=== PATIENT | female | born 1955 | race Two or more races ===

== ENCOUNTER 2023-09-11 11:48 | Emergency (ER) | payer OTHER, SELFPAY ==
[2023-09-11 11:50] VITALS: BP 193/85; PULSE 57; TEMP 36.7; O2SAT 97; BMI 28.9
--- NOTE | 2023-09-11 12:13 | ECG_ITS ---
[facility] Test Date: 2023-09-11 Pat Name: SHELLI WATERS Department: Room: - Gender: Female Construction Rep: : 1955 Requested By: MATTHEW WILEY Order Number: [id number] Reading MD: NGA STROUD Measurements Intervals [place] Rate: 55 P: 46 UT: 172 QRS: -12 QRSD: 84 T: 32 QT: 432 QTc: 420 Interpretive Statements 1100 Sinus rhythm 2420 RSR (QR) in lead V1/V2, consistent with right ventricular conduction delay 9130 borderline ECG No previous ECG available for comparison Electronically Signed On 09-11-2023 22:45:09 EDT by NGA STROUD
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
[2023-09-11 12:54] LABS: Basophils Absolute Auto 0.1 10^3/uL (0.0-0.1); Basophils Percent Auto 1.1 % (0.2-2.0); Eosinophils Absolute Auto 0.1 10^3/uL (0.0-0.7); Eosinophils Percent Auto 2.9 % (0.9-7.0); Hematocrit 43.4 % (36.0-48.0); Hemoglobin 14.4 g/dL (12.0-16.0); Immature Granulocytes Abs Auto 0.01 10^3/uL (0.00-0.03); Immature Granulocytes Pct Auto 0.2 % (0.0-0.5); Lymphocytes Absolute Auto 1.5 10^3/uL (1.2-3.8); Lymphocytes Percent Auto 31.1 % (20.5-60.0); Mean Corpuscular HGB Conc 33.2 g/dL (29.9-35.2); Mean Corpuscular Hemoglobin 31.8 pg (26.7-34.0); Mean Corpuscular Volume 95.8 fL (81.0-99.0); Mean Platelet Volume 9.8 fL (9.5-13.5); Monocytes Absolute Auto 0.4 10^3/uL (0.3-0.8); Monocytes Percent Auto 8.6 % (1.7-12.0); Neutrophils Absolute Auto 2.7 10^3/uL (1.4-6.5); Neutrophils Percent Auto 56.1 % (43.0-75.0); Platelet Count 246 10^3/uL (150-450); Red Blood Count 4.53 10^6/uL (4.20-5.40); White Blood Count 4.8 10^3/uL (4.0-11.0)
[2023-09-11 13:06] LABS: Alanine Aminotransferase 80 U/L (14-59); Albumin Globulin Ratio 0.9; Albumin Level 3.5 g/dL (3.4-5.0); Alkaline Phosphatase 78 U/L (46-116); Anion Gap 11.5; Aspartate Amino Transferase 46 U/L (15-37); BUN Creatinine Ratio 17.1; Bilirubin Total 1.2 mg/dL (0.2-1.0); Calcium 9.1 mg/dL (8.5-10.1); Carbon Dioxide 28.1 mmol/L (21.0-32.0); Chloride 105 mmol/L (98-107); Estimated GFR (African America >60 (>=60); Estimated GFR (Non-African Ame 52 (>=60); Globulin 3.8 g/dL; Glucose 122 mg/dL (74-106); Potassium 3.6 mmol/L (3.5-5.1); Sodium 141 mmol/L (136-145); Total Protein 7.3 g/dL (6.4-8.2)
[2023-09-11 13:13] LABS: Bilirubin Urine NEGATIVE (NEGATIVE); Blood Urine NEGATIVE (NEGATIVE); Clarity Urine SL CLOUDY (CLEAR); Color Urine YELLOW (YELLOW); Glucose Urine UA NEGATIVE (NEGATIVE); Ketones Urine TRACE mg/dL (NEGATIVE); Leukocyte Esterase Urine SMALL (NEGATIVE); Nitrite Urine NEGATIVE (NEGATIVE); Protein Urine 30 mg/dL (NEG/TRACE); Specific Gravity Urine >=1.030 (1.005-1.025); Urobilinogen Urine 0.2 EU/dL (0.2-1.0)
[2023-09-11 13:14] VITALS: BP 177/88; PULSE 75; O2SAT 98
[2023-09-11 13:17] LABS: Urine Microscopic Indicated YES
[2023-09-11 13:26] LABS: Amphetamine Screen Urine NEGATIVE (NEGATIVE); Barbiturates Screen Urine NEGATIVE (NEGATIVE); Benzodiazepines Screen Urine NEGATIVE (NEGATIVE); Buprenorphine Screen Urine NEGATIVE (NEGATIVE); Cannabinoid Screen Urine NEGATIVE (NEGATIVE); Cocaine Screen Urine NEGATIVE (NEGATIVE); Methadone Screen Urine NEGATIVE (NEGATIVE); Methamphetamines Screen Urine NEGATIVE (NEGATIVE); Opiate Screen Urine NEGATIVE (NEGATIVE); Oxycodone Screen Urine NEGATIVE (NEGATIVE); Phencyclidine Screen Urine NEGATIVE (NEGATIVE); Tricyclic Antidepressant Urine NEGATIVE (NEGATIVE)
--- NOTE | 2023-09-11 13:30 | PC.NURSE ---
Talked with Annabella at [facility] and discussed the situation with her. Her recommendation was to have their [facility] office in [place] call patient tin the morning to start the process of getting help. Due to there being no suicide or homicidal thoughts that she did not need to talk with the patient at this time.
[2023-09-11 13:39] LABS: Bacteria Urine LARGE #/HPF (NONE SEEN); Crystals Seen? None Seen #/HPF (None Seen); Mucus Urine SMALL (NONE SEEN); RBC Urine 0-2 #/HPF (0-2); Squamous Epithelial Cell Urine MANY #/LPF (NONE/RARE); Transitional Epi Cells Urine FEW #/LPF (NONE SEEN)
[2023-09-11 13:40] LABS: Cast Seen? NONE SEEN #/LPF (NONE SEEN); Urine Culture Indicated YES
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
[2023-09-11] MEDS: LORAZEPAM 0.5 MG TABLET PO (16:18)
[2023-09-11 16:22] VITALS: BP 146/88; PULSE 72; O2SAT 98
[2023-09-11 17:31] LABS: Internal Control Within Normal Limits; SARS-CoV-2 Ag NEGATIVE (NEGATIVE)
[2023-09-11 21:15] VITALS: BP 150/90; PULSE 68; O2SAT 98
== END 2023-09-11 21:15 ==
PROVIDERS: Emergency Provider Emergency Medicine; Family Provider Family Medicine; PCP Family Medicine
DX: F32.A Depression, unspecified (principal); F41.9 Anxiety disorder, unspecified; R45.850 Homicidal ideations; Z86.73 Personal history of transient ischemic attack (TIA), and cerebral infarction without residual deficits; Z20.822 Contact with and (suspected) exposure to COVID-19; Z79.899 Other long term (current) drug therapy
CPT/HCPCS: 36415; 80053; 80307; 81001; 85025; 87086; 87811; 93005; 99285

== ENCOUNTER 2024-12-04 13:50 | Outpatient (OUT) | payer MEDICARE, SELFPAY ==
--- OUTSIDE RECORDS SUMMARY | 2010-05-17 02:31 | XMS_ITS | Encounter Summary ---
Author Organization [facility] Address [address], [address] [place] [address] Care Team Providers Care Oxygen Therapy Technician Name Role Phone Unavailable Primary Care Provider Unavailabl e Encounter Details Date Type Department Care Team (Late st Contact Info) Description 05/17/2010 2:31 AM EDT Hospital Encounter [place] [id number] Social History Tobacco Use Types Packs/Day Years Used Date Smoking Tobacco: Never Smokeless Tobacco: Never Alcohol Use Standard Drinks/Week Comments Yes 0 (1 standard drink = 0.6 oz pur e alcohol) occ PHQ-2 Answer Date Recorded PHQ-9 Total Score 0 11/22/2020 Interpersonal Safety Domain Source: IP Abuse Scr eening Answer Date Recorded Read-Only, Retired: Physical Abuse Denies 07/07/2022 Read-Only, Retired: Verbal Abuse Denies 07/07/2022 Read-Only, Retired: Emotional abuse Denies 07/07/2022 Read-Only, Retired: Financial Abuse Denies 07/07/2022 Read-Only, Retired: Sexual abuse Denies 07/07/2022 Comments No Sex and Gender Information Value Date Recorded Sex Assigned at Not on file Legal Sex Female 2:06 PM EST Gender Identity Not on file Sexual Orientation Not on file COVID-19 Exposure Response Date Recorded In the last month, have you been in contact with someone who was confirmed or suspected to have Coronavirus / COVID-19? No / Unsure 05/02/2021 1:19 PM EST documented as of this encounter Plan of Treatment Not on file documented as of this encounter Visit Diagnoses Not on filedocumented in this encounter
--- OUTSIDE RECORDS SUMMARY | 2010-06-01 07:08 | XMS_ITS | Encounter Summary ---
Author Organization [facility] Address [address], [address] [place] [address] Care Team Providers Care Recyclable Materials Sorter Name Role Phone Unavailable Primary Care Provider Unavailabl e Encounter Details Date Type Department Care Team (Late st Contact Info) Description 06/01/2010 7:08 AM EDT Hospital Encounter [place] [id number] Social History Tobacco Use Types Packs/Day Years [...]
--- OUTSIDE RECORDS SUMMARY | 2013-05-29 07:30 | XMS_ITS | Continuity of Care Document ---
Author [facility] Address [address] [place] [address] [place] [address] Phone Care Team Providers Care Billet Grinder Name Role Phone Unavailable Unavailable Unavailable Procedures Procedure Date OFFICE/OUTPATIENT VISIT, EST OFFICE/OUTPATIENT VISIT, EST OFFICE/OUTPATIENT VISIT, EST POSTOP FOLLOW-UP VISIT POSTOP FOLLOW-UP VISIT Gastric Bypass SUBSEQUENT HOSPITAL CARE SUBSEQUENT HOSPITAL CARE INITIAL HOSPITAL CARE LAP GASTRIC BYPASS/SYLVIE-EN-Y OFFICE/OUTPATIENT VISIT, EST Advance Directives Directive Yes / No Effective Date File Name No Information Encounters Encounter Description Practice Location Reason(s) For Visit Diagnoses Date Provider Providers Copied on Encounter OFFICE/OUTPAT IENT VISIT, [facility], [address] [place] [address], [id number], [place] tel:[phone] [facility] No Information No Information OFFICE/OUTPAT IENT VISIT, [facility], [address] [place] [address], [id number], [place] tel:[phone] [facility] No Information No Information OFFICE/OUTPAT IENT VISIT, [facility], [address] [place] [address], [id number], [place] tel:[phone] [facility] No Information No Information [facility], [address] [place] [address], [id number], [place] tel:[phone] [facility] No Information No Information [place] [facility], [address] [place] [address] [address], [place], [place], [id number], [place] tel:[phone] [facility] No Information No Information [place] [facility], [address] [place] [address] [address], [place], [id number], [place] tel:[phone] [facility] No Information No Information Referring Provider: Tano Webster, [address], [place], [address] . tel:[phone] SUBSEQUENT HOSPITAL CARE [place] [facility], [address] [facility] [address], [place], [place], [id number], [place] tel:[phone] [facility] No Information Carol ESTRADA Dariusz. [facility] [address], [address], [place]. tel:[phone] Referring Provider: Tano Webster, [address] [facility] [address], [place], [address] . tel:[phone] [facility], [address] [place] [address] [address], [place], [place], [id number], [place] tel:[phone] [facility] No Information Francine Freedman. [address], [place], [place], [id number], [place]. tel:[phone] Referring Provider: Tano Webster, [address] [place] [address] [address], [place], [address] . tel:[phone] OFFICE/OUTPAT IENT VISIT, [facility], [address] [facility] [address], [place], [place], [id number], [place] tel:[phone] [facility] No Information Francine Freedman. [facility] [address] [facility] [address], [place], [place], [id number], [place]. tel:[phone] Referring Provider: Tano Webster, [address] [facility] [address], [place], [address] . tel:[phone] Family History Family Member Type Diagnosis Age At Onset No Information Payers Payer name Insurance type Covered green party ID Authoriza tikylah(s) Medicare [id number] Medicaid [id number] Social History Type Description Quantity Date Captured Comments Sex Female Smoking Status No Information Chief Complaint And Reason For Visit No Information Reason For Referral Reason For Referral No Information History Of Present Illness Encounter Date Complaint History Of Prese nt Illness No Information Functional Status Date Functional Assessmen t No Information Instructions Date Instruction Additional Infor mation No Information Assessments Type Assessment Date No Information Patient Care Teams Name Effective Dates (start - stop) Status Members No Information
--- OUTSIDE RECORDS SUMMARY | 2024-12-04 11:30 | XMS_ITS | Encounter Summary ---
Author Organization [facility] Address [address] [place] [address] Care Team Providers Care Rural Electrification Engineer Name Role Phone Katey Kim RN Unavailable [phone] Jori Connelly MD Primary Care Provider [phone] Jori Connelly MD Unavailable [phone] Reason for Visit * Reason Comments Hypertension Hyperlipidemia Diabetes Encounter Details Date Type Department Care Team (Late st Contact Info) Description 12/04/2024 11:30 AM EDT Office Visit [facility] [address] [facility] [address] [place] [address] Jori Connelly MD 112 [facility] [address] [place] [address] Benign essential hypertension; Hypertensive nephropathy; Stage 2 chronic kidney disease; Microalbuminuria; Mixed hyperlipidemia; Chronic hypokalemia; Type 2 diabetes mellitus with diabetic nephropathy, without long-term current use of insulin (HCC) Social History Tobacco Use Types Packs/Day Years Used Date Smoking Tobacco: Never Smokeless Tobacco: Never Alcohol Use Standard Drinks/Week Comments Yes 4 (1 standard drink = 0.6 oz pure alcohol) Caffeine intake: 1 cup per day coffee Humiliation, Afraid, Rape, and Kick questionnair e Answer Date Recorded Within the last year, have y ou been afraid of your partner or ex-partner? No 07/12/2023 Within the last year, have y ou been humiliated or emotionally abused in other ways by your partner or ex-partner? No Within the last year, have y ou been kicked, hit, slapped, or otherwise physically hurt by your partner or ex-partner? No 07/12/2023 Within the last year, have y ou been raped or forced to have any kind of sexual activity by your partner or ex-partner? No 07/12/2023 Social Connection and Isolat ion Panel [NHANES] Answer Date Recorded In a typical week, how many times do you talk on the phone with family, friends, or neighbors? More than three times a week 07/12/2023 How often do you get togethe r with friends or relatives? More than three times a week 07/12/2023 How often do you attend [facility] services or druze services? Never 07/12/2023 Do you belong to any clubs o r organizations such as buddhist groups, unions, fraternal or athletic groups, or school groups? No 07/12/2023 How often do you attend meet ings of the clubs or organizations you belong to? Never 07/12/2023 Are you , , di vorced, , never , or living with a partner? 07/12/2023 AUDIT-C Answer Date Recorded Q1: How often do you have a drink containing alcohol? Never 07/12/2023 Q2: How many drinks containi ng alcohol do you have on a typical day when you are drinking? Patient does not drink Q3: How often do you have si x or more drinks on one occasion? Never 07/12/2023 Overall Financial Resource Strain (CARDIA) Answe r Date Recorded How hard is it for you to pa y for the very basics like food, housing, medical care, and heating? Not hard at all 11/07/2022 PHQ-2 Answer Date Recorded Patient Health Questionnaire-2 Score 0 12/04/2024 [facility] [place] - Occupational Stress Questionnaire Answer Date Recorded Do you feel stress - tense, restless, nervous, or anxious, or unable to sleep at night because your mind is troubled all the time - these days? Not at all 07/12/2023 Exercise Vital Sign Answer Date Recorde d On average, how many days pe r week do you engage in moderate to strenuous exercise (like a brisk walk)? 5 days 07/12/2023 On average, how many minutes do you engage in exercise at this level? 20 min 07/12/2023 Hunger Vital Sign Answer Date Recorded Within the past 12 months, y ou worried that your food would run out before you got the money to buy more. Never true 07/12/19 24 Within the past 12 months, t he food you bought just didn't last and you didn't have money to get more. Never true 07/12/2023 PRAPARE - Transportation Answer Date Re corded In the past 12 months, has l ack of transportation kept you from medical appointments or from getting medications? No 11/2023 In the past 12 months, has l ack of transportation kept you from meetings, work, or from getting things needed for daily living? No 07/12/2023 Housing Stability Vital Sign Answer Jan e Recorded In the last 12 months, was t here a time when you were not able to pay the mortgage or rent on time? No 07/12/2023 In the last 12 months, how many places have you lived? 1 07/12/2023 In the last 12 months, was t here a time when you did not have a steady place to sleep or slept in a senior living (including now)? No 07/12/2023 Education Answer Date Recorded What is the highest level of school you have completed or the highest degree you have received? High school graduate 08/14/2022 Comments No Sex and Gender Information Value Date Recorded Sex Assigned at Not on file Legal Sex Female 6:54 PM EDT Gender Identity Not on file Sexual Orientation Not on file Occupation Industry Job Start Date Job End Date Works retail department supervisor Not on file Not on file Not on file documented as of this encounter Last Filed Vital Signs Vital Sign Reading Time Taken Comments Blood Pressure 106/68 12/04/2024 11:20 AM EDT Pulse 49 12/04/2024 11:20 AM EDT Temperature - - Respiratory Rate - - Oxygen Saturation 98% 12/04/2024 11:20 AM EDT Inhaled Oxygen Concentration - - Weight - - Height - - Body Mass Index - - documented in this encounter Functional Status * Over the past 2 weeks, how often have you been bothered by any of the following problems? Question Answer Date of Assessment Author Little interest or pleasure in doing things Not at all 12/04/2024 11:24 AM EDT LondonJenifer Stiven A Feeling down, depressed, or hopeless Not at all 12/04/2024 11:24 AM EDT TellykristaJenifer serrano M A Patient Health Questionnaire -2 Score 0 12/04/2024 11:24 AM EDT TellykristaJenifer serrano M A documented as of this encounter Plan of Treatment Upcoming Encounters Date Type Department Care Team (Late st Contact Info) Description 01/07/2025 11:00 AM EST [facility] Visit [facility] 112 [facility] 100 [place] [address] Jori Connelly MD 112 [address] [place] [address] (Fax) documented as of this encounter Visit Diagnoses Diagnosis Benign essential hypertension Essential hypertension, benign Hypertensive nephropathy Unspecified hypertensive kidney disease with chronic kidney disease stage I through stage IV, or unspecified Stage 2 chronic kidney disease Microalbuminuria Proteinuria Mixed hyperlipidemia Chronic hypokalemia Hypopotassemia Type 2 diabetes mellitus with diabetic nephropathy, without long-term current use of insulin (HCC) documented in this encounter Additional Health Concerns Assessment Noted Time PHQ-9 Depression Total Score: 5 05/14/19 9:00 AM EDT A fall risk assessment has been complete d for the patient 09/21/2022 9:46 AM EDT documented as of this encounter Care Teams Rural Electrification Engineer Relationship Specialty Start Date End Date Jori Connelly MD [address] [place] [address] (Fax) PCP - General Family Medicine 09/25/24 Jori Connelly MD [address] [place] [address] (Fax) PCP - Medical [place] 03/05/2403/04 Katey Kim, PAULA [address] [facility] [address] [place] [address] Registered Nurse Family Medicine 07/12/23 documented as of this encounter
--- OUTSIDE RECORDS SUMMARY | 2024-12-04 13:54 | XMS_ITS | Encounter Summary ---
Author Organization [facility] Address [address] [place] [address] Care Team Providers Care Branch Sales And Service Representative Name Role Phone Katey Kim RN Unavailable [phone] Jori Connelly MD Primary Care Provider [phone] Jori Connelly MD Unavailable [phone] Encounter Details Date Type Department Care Team (Late st Contact Info) Description 11/26/2024 Orders Only [facility] [place] [facility] Family Medicine 112 [facility] 100 [place] [address] Jenifer Callahan, MA Type 2 diabetes mellitus with diabetic nephropathy, [...] week 07/12/2023 How often do you attend chur or worship services? Never 07/12/2023 Do you belong to any clubs o r organizations such as catholic groups, unions, fraternal or athletic groups, or [...] Date Recorded Patient Health Questionnaire-2 Score 0 11/12/2024 [facility] - Occupational Stress Questionnaire Answer [...] place to sleep or slept in a nursing home (including now)? 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 Not on file Not on file documented as of this encounter Plan of Treatment Upcoming Encounters Date Type Department Care Team (Late st Contact Info) Description 01/07/2025 11:00 AM EST Office Visit [facility] [place] [facility] 112 [facility] 100 [place] [address] Jori Connelly MD 112 [facility] 100 [place] [address] Scheduled Orders Name Type Priority Associated Diagnoses Orde r Schedule Hemoglobin A1c Lab Routine Type 2 diabetes mellitus with diabetic nephropathy, without long-term current use of insulin (HCC) Expected: 11/26/2024 (Approximate), Expires: 11/26/2025 documented as of this encounter Visit Diagnoses Diagnosis Type 2 diabetes mellitus with diabetic nephropathy, without long-term current use of insulin (HCC) documented in this encounter Additional Health Concerns Assessment Noted Time PHQ-9 Depression Total Score: 5 05/14/19 9:00 AM EDT A fall risk assessment has been complete d for the patient 09/21/2022 9:46 AM EDT documented as of this encounter Care Teams Branch Sales And Service Representative Relationship Specialty Start Date End Date Jori Connelly MD [address] [place] [address] PCP - General Family Medicine 09/25/24 Jori Connelly MD [address] [place] [address] PCP - Medical [facility] 03/05/2403/04 Katey Kim, PAULA [address] [place] [address] [place] [address] Registered Nurse Family Medicine 07/12/23 documented as of this encounter
--- OUTSIDE RECORDS SUMMARY | 2024-12-04 13:54 | XMS_ITS | Encounter Summary ---
Author Organization [facility] Address [address] [place] [address] Care Team Providers Care Copy Supervisor Name Role Phone Jori Connelly MD Unavailable Jori Connelly MD Primary Care Provider [phone] Katey Kim RN Unavailable [phone] Jori Connelly MD Unavailable [phone] Jori Connelly MD Unavailable [phone] Jori Connelly MD Primary Care Provider [phone] Jori Connelly MD Unavailable [phone] Encounter Details Date Type Department Care Team (Late st Contact Info) Description 10/17/2023 Orders Only [facility] [place] [address] Family Medicine 112 [facility] 100 [place] [address] Citlalli Diaz, OD [address] [place] [address] Social History Tobacco Use Types Packs/Day Years [...] 07/12/2023 How often do you attend chur ch or caodaism services? Never 07/12/2023 Do you belong to any clubs o r organizations such as jewish groups, unions, fraternal or athletic groups, or [...] Answer Date Recorded Patient Health Questionnaire-2 Score 1 05/28/2023 [facility] of Occupat ional Health - Occupational Stress [...] place to sleep or slept in a skilled nursing (including now)? 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 Not on file Not on file documented as of this encounter Plan of Treatment Upcoming Encounters Date Type Department Care Team (Late st Contact Info) Description 01/07/2025 11:00 AM EST Office Visit [facility] [place] [facility] 112 [facility] 100 [place] [address] Jori Connelly MD 112 [facility] 100 [place] [address] documented as of this encounter Procedures Procedure Name Priority Date/Time Associated Diagnosis Comments DIABETIC RETINOPATHY SCREENING - OU - BOTH EYES Routine 10/17/2023 11:39 AM EDT documented in this encounter Results * Diabetic Retinopathy Screening - OU - Both Eyes (10/17/2023 11:39 AM EDT) Anatomical Region Laterality Modality Head Other Citlalli Diaz OD OPHTH PHOTOGRAPHY Final Result documented in this encounter Visit Diagnoses Not on filedocumented in this encounter Additional Health Concerns Assessment Noted Time PHQ-9 Depression Total Score: 9 05/28/19 10:00 AM EDT A fall risk assessment has been complete d for the patient 09/21/2022 9:46 AM EDT documented as of this encounter Care Teams Copy Supervisor Relationship Specialty Start Date End Date Jori Connelly MD [address] [address] PCP - ACO Reach 07/27/22 04/10/24 Jori Connelly MD [address] [place] [address] PCP - General Family Medicine 08/03/22 09/24/24 oJri Connelly MD [address] [place] [address] (Fax) PCP - Devoted 08/04/23 03/04/24 Jori Connelly MD [address] [place] [address] PCP - ACO Reach 04/18/24 06/05/24 Jori Connelly MD [address] [facility] [place] [address] PCP - General Family Medicine 09/25/24 Jori Connelly MD 112 [facility] [address] [place] [address] PCP - Medical [place] 03/05/2403/04 Katey Kim, RN [address] [place] [address] [place] [address] Registered Nurse Family Medicine 07/12/23 documented as of this encounter
--- OUTSIDE RECORDS SUMMARY | 2024-12-04 13:54 | XMS_ITS | Encounter Summary ---
Author Organization [facility] Healthcare Address [address] [place] [address] Care Team Providers Care Hotel Services Sales Representative Name Role Phone Katey Kim RN Unavailable [phone] Jori Connelly MD Primary Care Provider [phone] Jori Connelly MD Unavailable [phone] Encounter Details Date Type Department Care Team (Latest Contact Info) Description 12/04/2024 Travel Social History Tobacco Use Types Packs/Day Years [...] often do you attend chur ch or druze services? Never 07/12/2023 Do you belong to any clubs o r organizations such as advent groups, unions, fraternal or athletic groups, or [...] Recorded Patient Health Questionnaire-2 Score 0 12/04/2024 [facility] of Occupat ional Health - Occupational Stress [...] place to sleep or slept in a care home (including now)? 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 Question Answer Date of Assessment Author Little interest or pleasure in doing things Not at all 12/04/2024 11:24 AM EDT Jenifer Callahan M A Feeling down, depressed, or hopeless Not at all 12/04/2024 11:24 AM Jenifer Burns M A Patient Health Questionnaire -2 Score 0 12/04/2024 11:24 AM EDT Jenifer Callahan M A documented as of this encounter Plan of Treatment Upcoming Encounters Date Type Department Care Team (Late st Contact Info) Description 01/07/2025 11:00 AM EST Office Visit [facility] [place] [facility] 112 [facility] 100 [place] [address] Jori Connelly MD 112 [facility] [address] [place] [address] documented as of this encounter Visit Diagnoses Not on filedocumented in this encounter Additional Health Concerns Assessment Noted Time PHQ-9 Depression Total Score: 5 05/14/19 9:00 AM EDT A fall risk assessment has been complete d for the patient 09/21/2022 9:46 AM EDT documented as of this encounter Care Teams Hotel Services Sales Representative Relationship Specialty Start Date End Date Jori Connelly MD [address] [place] [address] PCP - General Family Medicine 09/25/24 Jori Connelly MD [address] [place] [address] PCP - Medical [facility] 03/05/2403/04 Katey Kim, PAULA [address] [place] [address] Registered Nurse Family Medicine 07/12/23 documented as of this encounter
--- OUTSIDE RECORDS SUMMARY | 2024-12-04 13:54 | XMS_ITS | Encounter Summary ---
Author Organization [facility] Healthcare Address [address] [place] [address] Care Team Providers Care Batch Room Technician Name Role Phone Katey Kim RN Unavailable [phone] Jori Connelly MD Primary Care Provider [phone] Jori Connelly MD Unavailable [phone] Encounter Details Date Type Department Care Team (Late st Contact Info) Description 11/26/2024 Patient Outreach [facility]ATION [facility] [address] [place] [address] Katey Kim, PAULA [address] [place] [address] Social History Tobacco Use Types Packs/Day Years [...] How often do you attend chur or lutheran services? 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 Called Don, pt's for monthly monitor call. States pt is doing well. States she does get tired easily. Discussed how she feeling after completing her antibiotic for UTI, statesshe is having no issues currently. Discussed that PCP wants pt to have urinalysis and culture of urine if indicated. Discussed it can be done at [facility] (where Dr Connelly's office is) or at [facility]. Stateshe will bring pt to [facility] for this. Order in. States that he just picked up medication for pt and they did not have one of her medications. States it was Memantine. Discussed CM can call to see if they need anything as the order was sent. States he has no other questions or concerns. Encouraged to call when needs arise. <November 26, 2024, 11:53 - Katey Kim RN> Called [facility], spoke with Katia, states that they will sync this medications with all the other medications. States they will notify pt when medications is ready for pick up driver. documented in this encounter Plan of Treatment Upcoming Encounters Date Type Department Care Team (Late st Contact Info) Description 01/07/2025 11:00 AM EST Office Visit [facility] [address] [address] Jori Connelly MD [address] [address] documented as of this encounter Procedures Procedure Name Priority Date/Time Associated Diagnosis Comments URINALYSIS, COMPLETE W/MICROSCOPY Routine 12/02/2024 1:49 PM EDT Acute renal failure, unspecified acute renal failure type Acute cystitis with hematuria CULTURE, URINE, ROUTINE Routine 12/02/2024 1:49 PM EDT Acute renal failure, unspecified acute renal failure type Acute cystitis with hematuria documented in this encounter Results * (ABNORMAL) Urinalysis with microscopic (12/02/2024 1:49 PM EDT) COLOR YELLOW YELLOW [facility] APPEARANCE CLEAR CLEAR [facility] SPECIFIC GRAVITY 1.018 1.001 - 1.035 [facility] PH 6.5 5.0 - 8.0 [facility] GLUCOSE NEGATIVE NEGATIVE [facility] BILIRUBIN NEGATIVE NEGATIVE [facility] KETONES NEGATIVE NEGATIVE [facility] OCCULT BLOOD NEGATIVE NEGATIVE [facility] PROTEIN NEGATIVE NEGATIVE [facility] NITRITE NEGATIVE NEGATIVE [facility] LEUKOCYTE ESTERASE NEGATIVE NEGATIVE [facility] WBC 0-5 < OR = 5 /HPF [facility] RBC 10-20(A) < OR = 2 /HPF [facility] SQUAMOUS EPITHELIAL CELLS 40-60(A) < OR = 5 /HPF [facility] BACTERIA MANY(A) NONE SEEN /HPF [facility] HYALINE CAST NONE SEEN NONE SEEN /LPF [facility] NOTE [facility] Comment: This urine was analyzed for the presence of WBC, RBC, bacteria, casts, and other formed elements. Only those elements seen were reported. Urine Urine specimen obtained by clean catch procedure / Unknown 12/02/2024 1:49 PM EDT 12/02/2024 1:50 PM EDT Narrative Resulting Agency Comment Performing Organization Information Site ID: QPT Name: [facility] Address: [address] [place] [address], [address] [place] [phone] Director: Naveed Long MD Jori Connelly MD LAB URINE ORDERABLES Final R esult Performing Organization Address [facility] de Phone Number [facility] * Urine culture (12/02/2024 1:49 PM EDT) MICRO NUMBER [id number] [facility] SPECIMEN QUALITY Adequate [facility] SOURCE: ([facility]) URINE [facility] STATUS FINAL [facility] RESULT SEE NOTE [facility] Comment: Mixed genital janusz isolated. These superficial bacteria are not indicative of a urinary tract infection. No further organism identification is warranted on this specimen. If clinically indicated, recollect clean-catch, mid-stream urine and transfer immediately to Urine Culture Transport Tube. Urine Urine specimen obtained by clean catch procedure / Unknown 12/02/2024 1:49 PM EDT 12/02/2024 1:50 PM EDT Narrative Resulting Agency Comment Performing Organization Information Site ID: QPT Name: [facility] Address: [address] [place] [address], [address] [place] [phone] Director: Naveed Long MD Jori Connelly MD LAB MICROBIOLOGY - GENERAL O RDERABLES Final Result Performing Organization Address [facility] de Phone Number [facility] documented in this encounter Visit Diagnoses Diagnosis Mild vascular dementia, unspecified whether behavioral, psychotic, or mood disturbance or anxiety (HCC)- Primary Acute renal failure, unspecified acute renal failure type Acute cystitis with hematuria Essential (primary) hypertension Unspecified essential hypertension documented in this encounter Additional Health Concerns Assessment Noted Time PHQ-9 Depression Total Score: 5 05/14/19 25 9:00 AM EDT A fall risk assessment has been complete d for the patient 09/21/2022 9:46 AM EDT documented as of this encounter Care Teams Batch Room Technician Relationship Specialty Start Date End Date Jori Connelly MD [address] [place] [address] PCP - General Family Medicine 09/25/24 Jori Connelly MD [address] [place] [address] PCP - Medical [facility] 03/05/2403/04 Katey Kim, RN [address] [place] [address] Registered Nurse Family Medicine 07/12/23 documented as of this encounter
--- OUTSIDE RECORDS SUMMARY | 2024-12-04 13:54 | XMS_ITS | Encounter Summary ---
Author Organization [facility] Address [address] [place] [address] Care Team Providers Care Entry Level Buyer Name Role Phone Jori Connelly MD Unavailable [phone] Jori Connelly MD Primary Care Provider [phone] Katey Kim RN Unavailable [phone] Jori Connelly MD Unavailable [phone] Jori Connelly MD Unavailable [phone] Jori Connelly MD Primary Care Provider [phone] Jori Connelly MD Unavailable [phone] Encounter Details Date Type Department Care Team (Late st Contact Info) Description 10/03/2023 [facility] [address] [place] [address] Unallocated, Real ProviderMD [address] [place] [address] Social History Tobacco Use Types Packs/Day Years [...] often do you attend chur ch or confucianism services? Never 07/12/2023 Do you belong to any clubs o r organizations such as nondenominational groups, unions, fraternal or athletic groups, or [...] Recorded Patient Health Questionnaire-2 Score 1 05/28/2023 [facility] [place] of Occupat ional Health - Occupational Stress [...] place to sleep or slept in a snf (including now)? 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 Not on file Not on file documented as of this encounter Plan of Treatment Upcoming Encounters Date Type Department Care Team (Late st Contact Info) Description 01/07/2025 11:00 AM EST Office Visit [facility] [place] [facility] 112 [facility] 100 [place] [address] Jori Connelly MD 112 [facility] 100 [place] [address] (Fax) documented as of this encounter Visit Diagnoses Not on filedocumented in this encounter Additional Health Concerns Assessment Noted Time PHQ-9 Depression Total Score: 9 05/28/19 10:00 AM EDT A fall risk assessment has been complete d for the patient 09/21/2022 9:46 AM EDT documented as of this encounter Care Teams Entry Level Buyer Relationship Specialty Start Date End Date Jori Connelly MD [address] [place] [address] [address] (Fax) PCP - ACO Reach 07/27/22 04/10/24 Jori Connelly MD [address] [place] [address] [address] (Fax) PCP - General Family Medicine 08/03/22 09/24/24 Jori Connelly MD [address] [place] [address] [address] (Fax) PCP - Devoted 08/04/23 03/04/24 Jori Connelly MD [address] [place] [address] [address] (Fax) PCP - ACO Reach 04/18/24 06/05/24 Jori Connelly MD [address] [place] [address] [address] (Fax) PCP - General Family Medicine 09/25/24 Jori Connelly MD [address] [place] [address] [address] (Fax) PCP - Medical [facility] 03/05/2403/04 Katey Kim, PAULA [address] [facility] [address] [place] [address] Registered Nurse Family Medicine 07/12/23 documented as of this encounter
--- OUTSIDE RECORDS SUMMARY | 2024-12-04 13:54 | XMS_ITS | Encounter Summary ---
Author Organization [facility] Address [address] [place] [address] Care Team Providers Care Slat Basket Maker Helper Name Role Phone Jori Connelly MD Unavailable [phone] Jori Connelly MD Primary Care Provider [phone] Katey Kim RN Unavailable [phone] Jori Connelly MD Unavailable [phone] Jori Connelly MD Unavailable [phone] Jori Connelly MD Primary Care Provider [phone] Jori Connelly MD Unavailable [phone] Reason for Visit * Reason Comments Med Refill Encounter Details Date Type Department Care Team (Late st Contact Info) Description 11/25/2023 Refill [facility] [place] [address] Family Medicine [address] [place] [address] Jori Connelly MD [address] [place] [address] (Fax) Mixed hyperlipidemia Social History Tobacco Use Types Packs/Day Years [...] often do you attend chur ch or taoist services? Never 07/12/2023 Do you belong to any clubs o r organizations such as rastafarian groups, unions, fraternal or athletic groups, or [...] Recorded Patient Health Questionnaire-2 Score 1 05/28/2023 [facility] [place] of Occupat ional Health - Occupational Stress [...] place to sleep or slept in a group home (including now)? 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 Not on file documented as of this encounter Plan of Treatment Upcoming Encounters Date Type Department Care Team (Late st Contact Info) Description 01/07/2025 11:00 AM EST Office Visit [facility] 112 [facility] 100 [place] [address] Jori Connelly MD [address] [address] (Fax) documented as of this encounter Visit Diagnoses Diagnosis Mixed hyperlipidemia documented in this encounter Additional Health Concerns Assessment Noted Time PHQ-9 Depression Total Score: 9 05/28/19 10:00 AM EDT A fall risk assessment has been complete d for the patient 09/21/2022 9:46 AM EDT documented as of this encounter Care Teams Slat Basket Maker Helper Relationship Specialty Start Date End Date Jori Connelly MD [address] [address] (Fax) PCP - ACO Reach 07/27/22 04/10/24 Jori Connelly MD [address] [address] (Fax) PCP - General Family Medicine 08/03/22 09/24/24 Jori Connelly MD [address] [address] (Fax) PCP - Devoted 08/04/23 03/04/24 Jori Connelly MD [address] [address] (Fax) PCP - ACO Reach 04/18/24 06/05/24 Jori Connelly MD [address] [address] (Fax) PCP - General Family Medicine 09/25/24 Jori Connelly MD [address] [address] (Fax) PCP - Medical [place] 03/05/2403/04 Katey Kim, APULA [address] [place] [address] Registered Nurse Family Medicine 07/12/23 documented as of this encounter
--- OUTSIDE RECORDS SUMMARY | 2024-12-04 13:54 | XMS_ITS | Encounter Summary ---
Author Organization [facility] Healthcare Address [address] [place] [address] Care Team Providers Care Regional Owner Operator Truck Driver Name Role Phone Katey Kim RN Unavailable [phone] Jori Connelly MD Primary Care Provider [phone] Jori Connelly MD Unavailable [phone] Encounter Details Date Type Department Care Team (Late st Contact Info) Description 12/04/2024 Patient Outreach [facility] POPULATION HEALTH [address] [place] [address] Katey Kim, RN [address] [place] [address] Social History Tobacco Use Types Packs/Day Years [...] How often do you attend chur or mandaen services? 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 not set up, unable to LM. Will call later <December 04, 2024, 09:37 - Katey Kim RN> Senthil , returned call to Senthil. Discussed that the last Urinalysis on 12/02 that was done, specimen was loaded with contaminants. PCP wants another urinalysis completed by a nurse collecting the specimen with a catheter/discussedthe lab would not collect it, a nurse would need to do it. Discussed preferably done today. CM gaveDon phone number to call [facility] central scheduling to see when they can have this completed. Discussed if there are any issues to call CM back documented in this encounter Plan of Treatment Upcoming Encounters Date Type Department Care Team (Late st Contact Info) Description 01/07/2025 11:00 AM EST Office Visit [facility] Family Medicine 112 [facility] 100 [place] [address] Jori Connelly MD 112 [facility] [address] [place] [address] (Fax) documented as of this encounter Visit Diagnoses Diagnosis Essential (primary) hypertension- Primary Unspecified essential hypertension Mild vascular dementia, unspecified whether behavioral, psychotic, or mood disturbance or anxiety (HCC) documented in this encounter Additional Health Concerns Assessment Noted Time PHQ-9 Depression Total Score: 5 05/14/19 9:00 AM EDT A fall risk assessment has been complete d for the patient 09/21/2022 9:46 AM EDT documented as of this encounter Care Teams Regional Owner Operator Truck Driver Relationship Specialty Start Date End Date Jori Connelly MD 112 [facility] [address] [place] [address] (Fax) PCP - General Family Medicine 09/25/24 Jori Connelly MD 112 [facility] [place] [address] (Fax) PCP - Medical [facility] 03/05/2403/04 Katey Kim, PAULA [address] [facility] [address] [place] [address] Registered Nurse Family Medicine 07/12/23 documented as of this encounter
--- OUTSIDE RECORDS SUMMARY | 2024-12-04 13:54 | XMS_ITS | Encounter Summary ---
Author Organization [facility] Healthcare Address [address] [place] [address] Care Team Providers Care Branch Sales Manager Name Role Phone Jori Connelly MD Primary Care Provider [phone] Katey Kim RN Unavailable [phone] Jori Connelly MD Primary Care Provider + [phone] Jori Connelly MD Unavailable [phone] Reason for Visit * Reason Comments Med Refill Encounter Details Date Type Department Care Team (Late st Contact Info) Description 06/14/2024 Refill [facility] [address] [place] [address] Jori Connelly MD 112 [facility] [address] [place] [address] (Fax) Dementia without behavioral disturbance (HCC); Anxiety with depression Social History Tobacco Use Types Packs/Day Years [...] How often do you attend chur or anabaptism services? Never 07/12/2023 Do you belong to any clubs o r organizations such as confucianism groups, unions, fraternal or athletic groups, or [...] Date Recorded Patient Health Questionnaire-2 Score 0 05/13/2024 [facility] of Occupat ional Health - Occupational Stress [...] place to sleep or slept in a prison (including now)? 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 Not on file Not on file documented as of this encounter Plan of Treatment Upcoming Encounters Date Type Department Care Team (Late st Contact Info) Description 01/07/2025 11:00 AM EST Office Visit [facility] 112 [facility] 100 [place] [address] Jori Connelly MD 112 [facility] 100 [place] [address] (Fax) documented as of this encounter Visit Diagnoses Diagnosis Dementia without behavioral disturbance (HCC) Anxiety with depression documented in this encounter Additional Health Concerns Assessment Noted Time PHQ-9 Depression Total Score: 5 05/14/19 9:00 AM EDT A fall risk assessment has been complete d for the patient 09/21/2022 9:46 AM EDT documented as of this encounter Care Teams Branch Sales Manager Relationship Specialty Start Date End Date Jori Connelly MD PCP - General Family Medicine 08/03/22 09/24/24 Jori Connelly MD [address] [address] PCP - General Family Medicine 09/25/24 Jori Connelly MD [address] [address] PCP - Medical [facility] 03/05/2403/04 Katey Kim, PAULA [address] [facility] [address] [place] [address] Registered Nurse Family Medicine 07/12/23 documented as of this encounter
--- OUTSIDE RECORDS SUMMARY | 2024-12-04 13:54 | XMS_ITS | Encounter Summary ---
Author Organization [facility] Address [address] [place] [address] Care Team Providers Care Portfolio Lead Name Role Phone Jori Connelly MD Unavailable + [phone] Jori Connelly MD Primary Care Provider + Katey Kim RN Unavailable [phone] Katey Kim RN Unavailable [phone] Jori Connelly MD Unavailable + [phone] Jori Connelly MD Unavailable + [phone] Jori Connelly MD Primary Care Provider + Jori Connelly MD Unavailable + [phone] Encounter Details Date Type Department Care Team (Late st Contact Info) Description 09/04/2022 Abstract [facility] [address] [facility] [address] [place] [address] Virgilio Sorto, PT [address] [facility] [place] [address] [place] [address] Social History Tobacco Use Types Packs/Day Years Used Date Smoking Tobacco: Never Smokeless Tobacco: Never Alcohol Use Standard Drinks/Week Comments Yes 2 (1 standard drink = 0.6 oz pure alcohol) Caffeine intake: 1 cup per day coffee Education Answer Date Recorded What is the [...] 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 Not on file Not on file documented as of this encounter Plan of Treatment Upcoming Encounters Date Type Department Care Team (Late st Contact Info) Description 01/07/2025 11:00 AM EST Office Visit [facility] [address] [place] [address] [place] [address] Jori Connelly MD [address] [place] [address] (Fax) documented as of this encounter Visit Diagnoses Not on filedocumented in this encounter Care Teams Portfolio Lead Relationship Specialty Start Date End Date Jori Connelly MD [address] [place] [address] (Fax) PCP - ACO Reach 07/27/22 04/10/24 Jori Connelly MD [address] [place] [address] (Fax) PCP - General Family Medicine 08/03/22 09/24/24 Jori Connelly MD [address] [place] [address] (Fax) PCP - Devoted 08/04/23 03/04/24 Jori Connelly MD [address] [place] [address] (Fax) PCP - ACO Reach 04/18/24 06/05/24 Jori Connelly MD [address] [place] [address] (Fax) PCP - General Family Medicine 09/25/24 Jori Connelly MD 112 [facility] [address] [place] [address] PCP - Medical [place] 03/05/2403/04 Katey Kim RN [address] [place] [address] [place] [address] Registered Nurse Family Medicine 01/04/23 01/09/23 Katey Kim RN [address] [place] [address] [place] [address] Registered Nurse Family Medicine 07/12/23 documented as of this encounter
--- OUTSIDE RECORDS SUMMARY | 2024-12-04 13:54 | XMS_ITS | Encounter Summary ---
Author Organization [facility] Healthcare Address [address] [place] [address] Care Team Providers Care Student Union Consultant Name Role Phone Katey Kim RN Unavailable [phone] Jori Connelly MD Primary Care Provider [phone] Jori Connelly MD Unavailable [phone] Encounter Details Date Type Department Care Team (Late st Contact Info) Description 12/04/2024 Patient Outreach [facility] [address] [place] [address] Katey Kim, RN [address] [place] [address] [place] [address] Social History Tobacco Use Types Packs/Day Years [...] How often do you attend chur or quaker services? Never 07/12/2023 Do you belong to any clubs o r organizations such as denominational groups, unions, fraternal or athletic groups, or [...] Recorded Patient Health Questionnaire-2 Score 0 12/04/2024 [facility] of Occupat ional Health - Occupational Stress [...] place to sleep or slept in a detention (including now)? 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 Question Answer Date of Assessment Author Little interest or pleasure in doing things Not at all 12/04/2024 11:24 AM EDT [place] JeniferStiven A Feeling down, depressed, or hopeless Not at all 12/04/2024 11:24 AM NOEMY Callahan Jenifer M A Patient Health Questionnaire -2 Score 0 12/04/2024 11:24 AM NOEMY Callahan Jenifer M A documented as of this encounter Plan of Treatment Upcoming Encounters Date Type Department Care Team (Late st Contact Info) Description 01/07/2025 11:00 AM EST Office Visit [facility] [address] [place] [address] 100 [place] [address] Jori Connelly MD [address] [address] documented as of this encounter Visit Diagnoses Diagnosis Mild vascular dementia, unspecified whether behavioral, psychotic, or mood disturbance or anxiety (HCC)- Primary Type 2 diabetes mellitus with diabetic nephropathy, without long-term current use of insulin (HCC) documented in this encounter Additional Health Concerns Assessment Noted Time PHQ-9 Depression Total Score: 5 05/14/19 9:00 AM EDT A fall risk assessment has been complete d for the patient 09/21/2022 9:46 AM EDT documented as of this encounter Care Teams Student Union Consultant Relationship Specialty Start Date End Date Jori Connelly MD [address] [address] PCP - General Family Medicine 09/25/24 Jori Connelly MD [address] [address] PCP - Medical [place] MA 03/05/2403/04 Katey Kim, PAULA [address] [facility] 230 [place] [address] Registered Nurse Family Medicine 07/12/23 documented as of this encounter
--- OUTSIDE RECORDS SUMMARY | 2024-12-04 13:54 | XMS_ITS | Encounter Summary ---
Author Organization [facility] Address [address] [place] [address] Care Team Providers Care Pourer Off Name Role Phone Katey Kim RN Unavailable [phone] Jori Connelly MD Primary Care Provider [phone] Jori Connelly MD Unavailable [phone] Reason for Visit * Reason Comments Med Refill Encounter Details Date Type Department Care Team (Late st Contact Info) Description 11/20/2024 Refill [facility] [place] [address] [facility] [address] [place] [address] [place] [address] Jroi Connelly MD 112 [facility] [address] [place] [address] Mixed hyperlipidemia ; 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 Never 07/12/2023 Do you belong to any clubs o r organizations such as spiritism groups, unions, fraternal or athletic groups, or [...] Recorded Patient Health Questionnaire-2 Score 0 11/12/2024 [facility] of Occupat ional Health - [...] place to sleep or slept in a long-term (including now)? 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) documented in this encounter Additional Health Concerns Assessment Noted Time PHQ-9 Depression Total Score: 5 03/11/20 25 9:00 AM EDT A fall risk assessment has been complete d for the patient 09/21/2022 9:46 AM EDT documented as of this encounter Care Teams Pourer Off Relationship Specialty Start Date End Date Jori Connelly MD [address] [place] [address] [address] PCP - General Family Medicine 09/25/24 Jori Connelly MD [address] [place] [address] [address] PCP - Medical [place] 03/05/2403/04 Katey Kim, PAULA [address] [facility] 230 [place] [address] Registered Nurse Family Medicine 07/12/23 documented as of this encounter
--- OUTSIDE RECORDS SUMMARY | 2024-12-04 13:54 | XMS_ITS | Encounter Summary ---
Author Organization [facility] Address [address] [place] [address] Care Team Providers Care Steel Checker Name Role Phone Jori Connelly MD Unavailable [phone] Jori Connelly MD Primary Care Provider + [phone] Katey Kim RN Unavailable [phone] Jori Connelly MD Unavailable [phone] Jori Connelly MD Unavailable [phone] Jori Connelly MD Primary Care Provider [phone] Jori Connelly MD Unavailable [phone] Encounter Details Date Type Department Care Team (Late st Contact Info) Description 05/15/2023 Clinisync Result Encounter [facility] External Department Unsolicited Provider, Generic External Data Social History Tobacco Use Types Packs/Day Years Used Date Smoking Tobacco: Never Smokeless Tobacco: Never Alcohol Use Standard Drinks/Week Comments Yes 4 (1 standard drink = 0.6 oz pure alcohol) Caffeine intake: 1 cup per day coffee Humiliation, Afraid, Rape, and Kick questionnair e Answer Date Recorded Within the last year, have y ou been afraid of your partner or ex-partner? No 11/07/2022 Within the last year, have y ou been humiliated or emotionally abused in other ways by your partner or ex-partner? No Within the last year, have y ou been kicked, hit, slapped, or otherwise physically hurt by your partner or ex-partner? No 11/07/2022 Within the last year, have y ou been raped or forced to have any kind of sexual activity by your partner or ex-partner? No 11/07/2022 Social Connection and Isolat ion Panel [NHANES] Answer Date Recorded In a typical week, how many times do you talk on the phone with family, friends, or neighbors? Three times a week 11/07/2022 How often do you get togethe r with friends or relatives? Three times a week 11/07/2022 How often do you attend chur or cheondoism services? More than 4 times per year 11/07/2022 Do you belong to any clubs o r organizations such as tenriism groups, unions, fraternal or athletic groups, or school groups? Patient declined 11/07/2022 How often do you attend meet ings of the clubs or organizations you belong to? Patient declined 11/07/2022 Are you , , di vorced, , never , or living with a partner? 11/07/2022 AUDIT-C Answer Date Recorded Q1: How often do you have a drink containing alc ohol? Monthly or less 12/22/2022 Q2: How many drinks containi ng alcohol do you have on a typical day when you are drinking? 1 or 2 12/22/2022 Q3: How often do you have si x or more drinks on one occasion? Never 12/22/2022 Overall Financial Resource Strain (CARDIA) Answe r Date Recorded How hard is it for you to pa y for the very basics like food, housing, medical care, and heating? Not hard at all 11/07/2022 PHQ-2 Answer Date Recorded Patient Health Questionnaire-2 Score 0 09/21/2022 [facility] of Occupat ional Health - Occupational Stress Questionnaire Answer Date Recorded Do you feel stress - tense, restless, nervous, or anxious, or unable to sleep at night because your mind is troubled all the time - these days? Not at all 11/07/2022 Exercise Vital Sign Answer Date Recorde d On average, how many days pe r week do you engage in moderate to strenuous exercise (like a brisk walk)? 2 days 11/07/2022 On average, how many minutes do you engage in exercise at this level? 10 min 11/07/2022 Hunger Vital Sign Answer Date Recorded Within the past 12 months, y ou worried that your food would run out before you got the money to buy more. Never true 11/08/19 23 Within the past 12 months, t he food you bought just didn't last and you didn't have money to get more. Never true 11/07/2022 PRAPARE - Transportation Answer Date Re corded In the past 12 months, has l ack of transportation kept you from medical appointments or from getting medications? No 07/2022 In the past 12 months, has l ack of transportation kept you from meetings, work, or from getting things needed for daily living? No 11/07/2022 Housing Stability Vital Sign Answer Jan e Recorded In the last 12 months, was t here a time when you were not able to pay the mortgage or rent on time? No 11/07/2022 In the last 12 months, how many places have you lived? 1 11/07/2022 In the last 12 months, was t here a time when you did not have a steady place to sleep or slept in a alf (including now)? 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 Not on file Not on file documented as of this encounter Plan of Treatment Upcoming Encounters Date Type Department Care Team (Late st Contact Info) Description 01/07/2025 11:00 AM EST Office Visit [facility] 112 [facility] [address] [place] [address] Jori Connelly MD 112 [facility] [address] [place] [address] documented as of this encounter Procedures Procedure Name Priority Date/Time Associated Diagnosis Comments BHAVIK RAMON DIGITAL SCREEN BILATERAL 05/15/2023 4:50 PM EDT documented in this encounter Results * BHAVIK RAMON DIGITAL SCREEN BILATERAL (05/15/2023 4:50 PM EDT) Anatomical Region Laterality Modality Other 05/15/2023 4:50 PM EDT Narrative 05/15/2023 4:54 PM EDT EXAMINATION: SCREENING DIGITAL BILATERAL MAMMOGRAM WITH TOMOSYNTHESIS, 05/15/2023 TECHNIQUE: Screening mammography was performed with tomosynthesis including MLO and CC views of the bilateral breasts. Computer aided detection was used for the interpretation of this exam. COMPARISON: 18 December 2012; 09 December 2010 HISTORY: Screening. Positive family history of breast cancer; 2 sisters in their 70s with breast cancer. No hormonal replacement therapy or breast interventions. FINDINGS: Both breasts are composed of scattered fibroglandular density. No skin thickening, nipple contour changes, suspicious calcifications, suspicious masses, areas of architectural distortion or significant interval changes are noted. A few stable benign-appearing calcifications are noted. IMPRESSION: No evidence of malignancy. Advise annual screening mammography. BI-RADS 2 BIRADS: BIRADS - CATEGORY 2 Benign Findings. Normal interval follow-up is recommended in 12 months. OVERALL ASSESSMENT - BENIGN A letter of notification will be sent to the patient regarding the results. The [employer] recommends annual mammograms for women 40 years and older. Interpreted by: Ruth Fields MD Signed by: Ruth Fields MD 05/15/23 Final result Procedure Note Radiology, Radiologist, MD - 05/15/2023 EXAMINATION: SCREENING DIGITAL BILATERAL MAMMOGRAM WITH TOMOSYNTHESIS, 05/15/2023 TECHNIQUE: Screening mammography was performed with tomosynthesis including MLO andCC views of the bilateral breasts. Computer aided detection was used forthe interpretation of this exam. COMPARISON: 18 December 2012; 09 December 2010 HISTORY: Screening. Positive family history of breast cancer; 2 sisters in [id number] with breast cancer. No hormonal replacement therapy or breastinterventions. FINDINGS: Both breasts are composed of scattered fibroglandular density. No skin thickening, nipple contour changes, suspicious calcifications,suspicious masses, areas of architectural distortion or significant interval changesare noted. A few stable benign-appearing calcifications are noted. IMPRESSION: No evidence of malignancy. Advise annual screening mammography. BI-RADS 2 BIRADS: BIRADS - CATEGORY 2 Benign Findings. Normal interval follow-up is recommended in 12 months. OVERALL ASSESSMENT - BENIGN A letter of notification will be sent to the patient regarding theresults. The [employer] recommends annual mammograms for women40 years and older. Interpreted by: Ruth Fields MD Signed by: Ruth Fields MD 05/15/23 Final result Generic External Data Provider [facility] Final Result documented in this encounter Visit Diagnoses Not on filedocumented in this encounter Additional Health Concerns Assessment Noted Time A fall risk assessment has been complete d for the patient 09/21/2022 9:46 AM EDT documented as of this encounter Care Teams Steel Checker Relationship Specialty Start Date End Date Jori Connelly MD [address] [place] [address] PCP - ACO Reach 07/27/22 04/10/24 Jori Connelly MD [address] [place] [address] PCP - General Family Medicine 08/03/22 09/24/24 Jori Connelly MD [address] [place] [address] PCP - Devoted 08/04/23 03/04/24 Jori Connelly MD [address] [place] [address] PCP - ACO Reach 04/18/24 06/05/24 Jori Connelly MD [address] [place] [address] PCP - General Family Medicine 09/25/24 Jori Connelly MD [address] [place] [address] PCP - Medical [place] MA 03/05/2403/04 Katey Kim, PAULA [address] [facility] [address] [place] [address] Registered Nurse Family Medicine 07/12/23 documented as of this encounter
--- OUTSIDE RECORDS SUMMARY | 2024-12-04 13:54 | XMS_ITS | Encounter Summary ---
Author Organization [facility] Address [address] [place] [address] Care Team Providers Care Glove Presser Name Role Phone Katey Kim RN Unavailable [phone] Jori Connelly MD Primary Care Provider Jori Connelly MD Unavailable [phone] Reason for Visit * Reason Comments Med Refill Encounter Details Date Type Department Care Team (Late st Contact Info) Description 11/18/2024 Refill [facility] [place] [address] Family Medicine [address] [place] [address] Jori Connelly MD 112 [facility] [address] [place] [address] Mixed hyperlipidemia ; Moderate vascular dementia with [...] often do you attend chur ch or orthodox services? Never 07/12/2023 Do you belong to any clubs o r organizations such as mormon groups, unions, fraternal or athletic groups, or [...] Recorded Patient Health Questionnaire-2 Score 0 11/12/2024 [facility] of Occupat ional Health - Occupational [...] place to sleep or slept in a correction (including now)? 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) documented in this encounter Additional Health Concerns Assessment Noted Time PHQ-9 Depression Total Score: 5 03/11/20 25 9:00 AM EDT A fall risk assessment has been complete d for the patient 09/21/2022 9:46 AM EDT documented as of this encounter Care Teams Glove Presser Relationship Specialty Start Date End Date Jori Connelly MD [address] [place] [address] [address] PCP - General Family Medicine 09/25/24 Jori Connelly MD [address] [place] [address] [address] PCP - Medical [place] MA 03/05/2403/04 Katey Kim, PAULA [address] [facility] 230 [place] [address] Registered Nurse Family Medicine 07/12/23 documented as of this encounter
--- OUTSIDE RECORDS SUMMARY | 2024-12-04 13:54 | XMS_ITS | Clinical Summary ---
Author Organization [facility] Address [address], [address] [place] [address] Care Team Providers Care Citizen Participation Specialist Name Role Phone Jori Connelly MD Primary Care Provider Allergies No known active allergies Medications zinc 50 MG CAPS Take by mouth. Active Biotin 1000 MCG TABS Take by mouth. Activ e vitamin B-12 (CYANOCOBALAMIN ) 1000 MCG tablet Take 1 tablet by mouth daily Active Cholecalciferol (D3-1000 PO) Take 4,000 mg by mouth. Active Multiple Vitamins-Minera ls (COMPLETE MULTIVITAMIN/MT NERAL PO) Take by mouth. Activ e calcium carbonate-vitam in D 600-200 MG-UNIT TABS Take by mouth. Ac tive losartan (COZAAR) 100 MG tablet Take 1 tablet by mouth daily Active omeprazole (PRILOSEC) 20 MG capsule Take 1 capsule by mouth daily Active citalopram (CELEXA) 20 MG tablet Take 1.5 tablets by mouth daily Active donepezil (ARICEPT) 10 MG tablet 1 tablet at bedtime Orally Once a day for 30 day(s) 0 Active amLODIPine (NORVASC) 10 MG tablet Take 1 tablet by mouth daily 30 tablet 3 3 Active Additional Information Patient not taking.Reported on 07/25/2023 aspirin 81 MG chewable tablet Aspirin Active 81 MG PO As Directed April 04, 2022 12:00am 3 Active azelastine (ASTELIN) 0.1 % nasal spray 2 sprays 2 times daily 2 Active calcium carb-cholecalci ferol 250-3.125 MG-MCG TABS per tab Take by mouth Active cyclobenzaprine (FLEXERIL) 10 MG tablet Take 0.5 tablets by mouth 3 times daily as needed Active cycloSPORINE (RESTASIS) 0.05 % ophthalmic emulsion 1 drop in the morning and 1 drop in the evening. 3 Active diclofenac sodium (VOLTAREN) 1 % GEL Apply 2 g topically 3 times daily Active diphenhydrAMINE -APAP, sleep, (TYLENOL PM EXTRA STRENGTH) 25-500 MG tablet Take by mouth Active escitalopram (LEXAPRO) 10 MG tablet Take 1 tablet by mouth every morning 3 Active gabapentin (NEURONTIN) 100 MG capsule TAKE 1 CAPSULE BY MOUTH THREE TIMES DAILY (IN THE MORNING, IN THE EVENING, and BEFORE bedtime) Active hydroCHLOROthia zide (HYDRODIURIL) 12.5 MG tablet Take 1 tablet by mouth daily Active Multiple Vitamin (MULTI-VITAMINS ) TABS Take 1 tablet by mouth daily Active pantoprazole (PROTONIX) 40 MG tablet Take 1 tablet by mouth every morning (before breakfast) 3 Active rosuvastatin (CRESTOR) 10 MG tablet Take 1 tablet by mouth every morning Active sucralfate (CARAFATE) 1 GM tablet Sucralfate Active 1 GM PO Daily April 04, 2022 12:00am 3 Active nebivolol (BYSTOLIC) 10 MG tablet Take 1 tablet by mouth daily 3 Active oxyBUTYnin (DITROPAN-XL) 10 MG extended release tablet TAKE 1 TABLET BY MOUTH DAILY 30 tablet 3 4 Active famotidine (PEPCID) 20 MG tablet Take 1 tablet by mouth 2 times daily Active memantine (NAMENDA) 5 MG tablet Take 1 tablet by mouth daily 60 tablet 2 4 Active Active Problems Problem Noted Date Diagnosed Date Hypertensive emergency 07/12/2022 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 Intracranial hemorrhage 07/07/2022 Left genital labial abscess 08/12/2013 Family History Medical History Relation Name Comments Heart Failure Father Cancer Mother Esophageal Cancer Mother Breast Cancer Sister 1 x 5 Breast Cancer Sister 2 Relation Name Status Comments Brother 1 x 4 Alive Brother 2 Alive Brother 3 Alive Brother 4 Alive Father Maternal Grandfather Maternal Grandmother Mother Paternal Grandfather Paternal Grandmother Sister 1 x 5 Alive Sister 2 Alive Sister 3 Alive Social History Tobacco Use Types Packs/Day Years Used Date Smoking Tobacco: Never Smokeless Tobacco: Never Tobacco Cessation:Counseling Given: Not Answered Alcohol Use Standard Drinks/Week Comments Yes 0 [...] on file Sexual Orientation Not on file Last Filed Vital Signs Vital Sign Reading Time Taken Comments Blood Pressure 149/78 07/25/2023 1:08 PM EDT Pulse 48 07/25/2023 1:08 PM EDT Temperature 36.7 C (98 F) 08/10/2022 3:05 PM EDT Respiratory Rate 18 08/10/2022 3:05 PM EDT Oxygen Saturation 98% 08/10/2022 3:05 PM EDT Inhaled Oxygen Concentration - - Weight 61.4 kg (135 lb 4.8 oz) 07/25/2023 1:08 P M EDT Height 139.7 cm (4' 7 ) 07/25/2023 1:08 PM EDT Body Mass Index 31.45 07/25/2023 1:08 PM EDT Plan of Treatment Health Maintenance Due Date Last Done Comments Depression Screen 1965 Hepatitis C screen 07/28/1971 DTaP/Tdap/Td vaccine (1 - Tdap) 1972 Colonoscopy 1998 Colorectal Cancer Screen 1998 FIT/FOBT: Average risk 1998 Fecal-DNA (Cologuard): Average risk 1998 Sigmoidoscopy/CT colonography 1998 Shingles vaccine (1 of 2) 07/28/2003 Pneumococcal 50+ years Vaccine (2 of 2 - PCV) 02/04/2013 02/05/2012 Respiratory Syncytial Virus (RSV) or age 60 yrs+ (1 - Risk 60-74 years 1-dose series) 2013 A1C test (Diabetic or Prediabetic) 07/09/2023 07/08/2022, 08/13/2012, 02/08/2012, Additional history exists Annual Wellness Visit (Medicare Advantage) 03/05/2024 Breast cancer screen 05/14/2024 05/15/2023, 11/05/2019, 05/14/2018, Additional history exists Lipids 09/13/2024 09/14/2023, 08/2011, 05/18/2011, Additional history exists Flu vaccine (#1) 10/03/2024 12/08/2020, 07/2020, 12/12/2016, Additional history exists COVID-19 Vaccine ( season) 2024 12/30/2020, 05/25/2020, 05/03/2020 DEXA (modify frequency per FRAX score) Completed 10/13/2019 Hepatitis A vaccine Aged Out No longe r eligible based on patient's age to complete this topic Hepatitis B vaccine Aged Out No longe r eligible based on patient's age to complete this topic Hib vaccine Aged Out No longer eligi ble based on patient's age to complete this topic Meningococcal (ACWY) vaccine Aged Out No longer eligible based on patient's age to complete this topic Meningococcal B vaccine Aged Out No l onger eligible based on patient's age to complete this topic Polio vaccine Aged Out No longer elig ible based on patient's age to complete this topic Procedures Procedure Name Priority Date/Time Associated Diagnosis Comments LIPID PANEL Routine 09/14/2023 7:10 AM EDT BHAVIK RAMON DIGITAL SCREEN BILATERAL Routine 05/15/2023 1:45 PM EDT Screening mammogram, encounter for HEMOGLOBIN A1C [facility] Label Print 07/08/2022 6:07 AM EDT from Last 3 Months or Most Recently Relevant to Health Maintenance Results * Lipid Panel (09/14/2023 7:10 AM EDT) Cholesterol, Total 117 0 - 199 mg/dL 09/14/2023 7:10 AM EDT [facility] Comment: Cholesterol Guidelines: <200 Desirable 200-240 Borderline >240 Undesirable HDL 45 >40 mg/dL 09/14/2023 7:10 AM EDT [facility] Comment: HDL Guidelines: <40 Undesirable 40-59 Borderline >59 Desirable LDL Cholesterol 59 0 - 100 mg/dL 09/14/2023 7:10 AM EDT [facility] Comment: LDL Guidelines: <100 Desirable 100-129 Near to/above Desirable 130-159 Borderline >159 Undesirable Direct (measured) LDL and calculated LDL are not interchangeable tests. Chol/HDL Ratio 3.0 09/14/2023 7:10 AM EDT [facility] Triglycerides 64 <150 mg/dL 09/14/2023 7:10 AM EDT [facility] Comment: Triglyceride Guidelines: <150 Desirable 150-199 Borderline 200-499 High >499 Very high Based on AHA Guidelines for fasting triglyceride, December 2011. VLDL 13 mg/dL 09/14/2023 7:10 AM EDT [facility] 09/14/2023 7:10 AM EDT 09/14/2023 7:37 AM EDT us Derek Ross MD CHEMISTRY ORDERABLES Final Resul t [facility] [address] [place] [address], [facility] [phone] [id number] [place] [address], [facility] [phone] * BHAVIK RAMON DIGITAL SCREEN BILATERAL (05/15/2023 1:45 PM EDT) Anatomical Region Laterality Modality Breast Bilateral Mammography 05/15/2023 4:48 PM EDT Impressions 05/15/2023 4:50 PM EDT No evidence of malignancy. Advise annual screening mammography. BI-RADS 2 BIRADS: BIRADS - CATEGORY 2 Benign Findings. Normal interval follow-up is recommended in 12 months. OVERALL ASSESSMENT - BENIGN A letter of notification will be sent to the patient regarding the results. The [employer] recommends annual mammograms for women 40 years and older. Narrative 05/15/2023 4:50 PM EDT EXAMINATION: SCREENING DIGITAL BILATERAL MAMMOGRAM [...] A few stable benign-appearing calcifications are noted. Dylon Patricio MD IMG MAMMOGRAPHY ORDERABLES Fi nal Result * (ABNORMAL) Hemoglobin A1c (07/08/2022 6:07 AM EDT) Hemoglobin A1C 6.3(H) 4.0 - 6.0 % 07/08/2022 6:07 AM EDT [facility] Estimated Avg Glucose 134 mg/dL 07/08/2022 6:07 AM EDT [facility] Comment: The ADA and AACC recommend providing the estimated average glucose result to permit better patient understanding of their HBA1c result. BLOOD SPECIMEN / Unknown 07/08/2022 6:07 AM EDT 07/08/2022 6:07 AM EDT Toby Gomes MD CHEMISTRY ORDERABLES Final Resul t [facility] [address] [place] [address], [facility] [phone] from Last 3 Months or Most Recently Relevant to Health Maintenance Insurance [employer] Advance Directives * Full Code (Latest Code Status on File) Date Activated Date Inactivated Comments 07/07/2022 10:20 PM 07/14/2022 5:25 PM * Full Code Date Activated Date Inactivated Comments 08/12/2013 11:26 AM 08/12/2013 6:30 PM Care Teams Citizen Participation Specialist Relationship Specialty Start Date End Date Jori Connelly MD PCP - General 03/24/14
--- OUTSIDE RECORDS SUMMARY | 2024-12-04 13:54 | XMS_ITS | Patient Health Record ---
Author Organization [facility] Address [address] [place] [address] Care Team Providers Care Bin Packer Name Role Phone Abhilash Arango [phone] Allergies Allergen (clinical drug ingredient) Drug/Non Drug Allergy documented on EMR Reaction Allergy Type Onset Date Status No Known Drug Allergies (uncoded) Unknown Allergy Active Reason For Referral No Information Medications Medication SIG (Take, Route, Frequency, Duration) Notes Start Date End Date Status NovoLOG FlexPen 100 units/ml 10 units PM SUB-Q NOVOLOG FLEXPEN 06/18/2007 Active Glucophage 500 mg 1 daily ORAL GLUCOPHAGE Active Lyrica 50 mg 1 po tid ORAL LYRICA 11/12/2007 Ac tive Lantus OptiClik Cartridge 100 units/ml 1 daily SUB-Q LANTUS Active darvocet-n 100 napsylate 650 mg-100 mg 1-2 po q 6-8 hours prn pain ORAL DARVOCET-N 100 11/12/2007 Active Cleocin 150 mg 4 TABLETS ONE HOUR PRIOR TO PROCEDURE, THEN 2 TABLETS SIX HOURS LATER. 08/27/2023 Active Pravastatin Sodium 40 mg 1 daily ORAL PRAVASTATIN SODIUM Active AmLODIPine Besylate 10 mg 1 daily ORAL AMLODIPINE BESYLATE Active Motrin 800 mg 1 po tid with food ORAL MOTRIN Active Aspirin 1 daily ORAL ASPIRIN Active Amaryl 4 mg as needed ORAL AMARYL Act lala Bumex 0.5 mg 1 daily ORAL BUMEX Acti ve Social History Tobacco Use: Social History Observation Description Date Details (start date - stop date) Never Smoker NA - NA Smoking History Question Answer Notes Smoking Status NonSmoker Problems Problem Type SNOMED Code ICD Code Onset Dates Problem Status W/U Status Risk Notes Problem 087034354 Aftercare following joint replacement surgery (Z47.1) Active confirmed Problem 641675138048 Presence of left artificial knee joint (Z96.652) Active confirmed Problem 4891909563 Acute pain of left knee (M25.562) Active confirmed Problem 565433758 Bunion, right foot (M21.611) Active confirmed Plan Of Treatment No Information Insurance Providers Payer Name Payer Address Payer Phone Subscriber Number Group Number Insured Name Patient Relationship to Insured Coverage Start Date Coverage [place] [address] [place] [address] [id number] Evelyn Javed Self - patient is the insured [address] [address] [id number] PLAN G Evelyn Javed Self - patient is the insured Medical (General) History Medical History History ICD Code Bariatric Surgery: Yes Surgical History Surgery Date(Month/Year)
--- OUTSIDE RECORDS SUMMARY | 2024-12-04 13:54 | XMS_ITS | Encounter Summary ---
Author Organization [facility] Address [address] [place] [address] Care Team Providers Care Correctional Supervisor Lieutenant Name Role Phone Jori Connelly MD Unavailable Jori Connelly MD Primary Care Provider [phone] Katey Kim RN Unavailable [phone] Katey Kim RN Unavailable [phone] Jori Connelly MD Unavailable [phone] Jori Connelly MD Unavailable [phone] Jori Connelly MD Primary Care Provider + Jori Connelly MD Unavailable [phone] Encounter Details Date Type Department Care Team (Late st Contact Info) Description 09/07/2022 Orders Only [facility] [address] [place] [address] Jori Conenlly MD [address] [place] [address] (Fax) Social History Tobacco Use Types Packs/Day Years [...] 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 Not on file Not on file documented as of this encounter Plan of Treatment Upcoming Encounters Date Type Department Care Team (Late st Contact Info) Description 01/07/2025 11:00 AM EST Office Visit [facility] Family Medicine [address] [place] [address] Jori Connelly MD [address] [place] [address] (Fax) documented as of this encounter Visit Diagnoses Not on filedocumented in this encounter Care Teams Correctional Supervisor Lieutenant Relationship Specialty Start Date End Date Jori Connelly MD [address] [place] [address] (Fax) PCP - ACO Reach 07/27/22 04/10/24 Jori Connelly MD [address] [place] [address] (Fax) PCP - General Family Medicine 08/03/22 09/24/24 Jori Connelly MD [address] [place] [address] (Fax) PCP - Devoted 08/04/23 03/04/24 Jori Connelly MD [address] [place] [address] (Fax) PCP - ACO Reach 04/18/24 06/05/24 Jori Connelly MD [address] [place] [address] (Fax) PCP - General Family Medicine 09/25/24 Jori Connelly MD [address] [facility] [address] [place] [address] PCP - Medical [place] 03/05/2403/04 Katey Kim RN [address] [place] [address] Registered Nurse Family Medicine 01/04/23 01/09/23 Katey Kim RN [address] [place] [address] Registered Nurse Family Medicine 07/12/23 documented as of this encounter
--- OUTSIDE RECORDS SUMMARY | 2024-12-04 13:54 | XMS_ITS | Encounter Summary ---
Author Organization [facility] Address [address] [place] [address] Care Team Providers Care Rotor Coil Taper Name Role Phone Katey Kim RN Unavailable [phone] Jori Connelly MD Primary Care Provider [phone] Jori Connelly MD Unavailable [phone] Reason for Visit * Reason Onset Date Comments Care Coordination 12/04/2024 Encounter Details Date Type Department Care Team (Late st Contact Info) Description 12/04/2024 Results Follow-Up [place] [address] Family Medicine [address] [facility] [address] [place] [address] Jori Connelly MD [address] [facility] [address] [place] [address] Urine culture, Urinalysis with microscopic Social History Tobacco Use Types Packs/Day Years [...] often do you attend chur ch or holiness services? Never 07/12/2023 Do you belong to any clubs o r organizations such as yarsani groups, unions, fraternal or athletic groups, or [...] Recorded Patient Health Questionnaire-2 Score 0 12/04/2024 [facility]tn Health - Occupational Stress Questionnaire Answer Date [...] place to sleep or slept in a penitentiary (including now)? No 07/12/2023 Education Answer Date [...] on file documented as of this encounter Miscellaneous Notes * Telephone Encounter - Jenifer Callahna MA - 12/04/2024 8:42 AM EDT Spoke with Katey. I ordered the lab she is going to have Don call [facility] to set it up * Telephone Encounter - Jori Connelly MD - 12/04/2024 8:20 AM EDT Not sure who ordered this. She really needs a catheterized specimen for UA C&S. 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) Expected: 12/04/2024 (Approximate), Expires: 12/04/2025 documented as of this encounter Visit Diagnoses Diagnosis Acute cystitis with hematuria Frequent urination Urinary frequency Abnormal finding on urinalysis 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) documented in this encounter Additional Health Concerns Assessment Noted Time PHQ-9 Depression Total Score: 5 05/14/19 9:00 AM EDT A fall risk assessment has been complete d for the patient 09/21/2022 9:46 AM EDT documented as of this encounter Care Teams Rotor Coil Taper Relationship Specialty Start Date End Date Jori Connelly MD [address] [place] [address] (Fax) PCP - General Family Medicine 09/25/24 Jori Connelly MD [address] [place] [address] (Fax) PCP - Medical [place] 03/05/2403/04 Katey Kim, PAULA [address] [place] [address] Registered Nurse Family Medicine 07/12/23 documented as of this encounter
--- OUTSIDE RECORDS SUMMARY | 2024-12-04 13:54 | XMS_ITS | Encounter Summary ---
Author Organization [facility] Address [address] [place] [address] Care Team Providers Care Label Paster Name Role Phone Jori Connelly MD Primary Care Provider [phone] Katey Kim RN Unavailable [phone] Jori Connelly MD Primary Care Provider [phone] Jori Connelly MD Unavailable [phone] Reason for Visit * Reason Comments Med Refill Encounter Details Date Type Department Care Team (Late st Contact Info) Description 06/23/2024 Refill [facility] [address] [place] [address] Jori Connelly MD [address] [facility] [address] [place] [address] (Fax) Dementia without behavioral disturbance (HCC); 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 Not on file Not on file documented as of this encounter Plan of Treatment Upcoming Encounters Date Type Department Care Team (Late st Contact Info) Description 01/07/2025 11:00 AM EST Office Visit [facility] [place] [facility] [address] [facility] [address] [place] [address] Jori Connelly MD [address] [facility] [address] [place] [address] (Fax) documented as of this encounter Visit Diagnoses Diagnosis Dementia without behavioral disturbance (HCC) 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) documented in this encounter Additional Health Concerns Assessment Noted Time PHQ-9 Depression Total Score: 5 05/14/19 9:00 AM EDT A fall risk assessment has been complete d for the patient 09/21/2022 9:46 AM EDT documented as of this encounter Care Teams Label Paster Relationship Specialty Start Date End Date Jori Connelly MD PCP - General Family Medicine 08/03/22 09/24/24 Jori Connelly MD [address] [place] [address] PCP - General Family Medicine 09/25/24 Jori Connelly MD [address] [place] [address] PCP - Medical [facility] 03/05/2403/04 Katey Kim, PAULA [address] [place] [address] Registered Nurse Family Medicine 07/12/23 documented as of this encounter
--- OUTSIDE RECORDS SUMMARY | 2024-12-04 13:54 | XMS_ITS | Clinical Summary ---
Author Organization [facility] Healthcare Address [address] [place] [address] Care Team Providers Care Sweatband Maker Name Role Phone Katey Kim RN Unavailable [phone] Jori Connelly MD Primary Care Provider Jori Connelly MD Unavailable [phone] Allergies No known active allergies Medications multivitamin (Theragran) tablet Take 1 tablet by mouth in the morning. Active Misc. 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 025 2025 Active hydrALAZINE (Apresoline) 25 MG tabletIndications: Benign essential hypertension Take 1 tablet (25 mg) by mouth in the morning and 1 tablet (25 mg) before bedtime. 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 02/21/2023 Urge incontinence of urine 02/21/2023 Gait disturbance, post-stroke 09/25/2022 Blind loop syndrome 08/14/2022 Epiretinal membrane (ERM) of right eye Falling episodes 08/14/2022 Hallux valgus (acquired), right foot 08/14/2022 Hypertensive nephropathy 08/14/2022 Obstructive sleep apnea 08/14/2022 Primary osteoarthritis of right foot 08/14/2022 Type 2 diabetes mellitus wit h diabetic nephropathy, without long-term current use of insulin 08/14/2022 Difficulty walking 08/11/2022 Bunion of right foot 01/31/2022 Mixed hyperlipidemia 03/14/2021 Chronic idiopathic constipation 08/30/2020 Iron deficiency anemia due to chronic blood loss 08/24/2020 Stage 2 chronic kidney disease 05/04/2020 Seasonal allergic rhinitis 03/24/2020 Primary osteoarthritis of right wrist 02/11/2020 Localized primary osteoarthritis of wrist 2019 Arthritis of wrist 02/05/2020 Age related osteoporosis 11/12/2019 Presence of both artificial knee joints 10/13/19 Cervical radiculopathy at C7 03/24/2019 Microalbuminuria 03/24/2019 Chronic fatigue syndrome 02/03/2019 Empty sella syndrome 02/03/2019 Presbyopia 09/12/2018 Anxiety with depression 07/10/2017 Surgical menopause 01/30/2017 White matter disease 12/11/2016 Chronic hypokalemia 03/13/2016 Gastro-esophageal reflux disease without esophag itis 09/13/2015 Cerebral atherosclerosis 12/07/2014 History of Arturo-en-Y gastric bypass 12/07/2014 History of pituitary tumor 12/07/2014 Vitamin D deficiency 12/07/2014 Benign essential hypertension 04/04/2007 Assessment & Plan (11/04/2022 10:44 AM EDT): Chronic problem, stable, to goal. In prescribing a renewal to their current medication, consideration of the following encompasses moderate decision making; the current prescriptions and supplements, the current allergies and medication intolerances, current medical conditions, and potential drug interactions. Drug interaction screening is reviewed and there are moderate to major severity ratings to consider during prescription drug management. If the adjusted medication is considered a controlled substance, then the OARRS and NARX scores are obtained and reviewed. Any changes to risks, benefits, and reason for renewing their current medication due to the above were discussed. The patient was given a chance to ask questions today and all questions were answered. The patient is to contact us, preferably by using the patient portal, or call if any other questions arise or if any problems occur with the renewal of their medication. (Utilizing the original guidelines or the 2020 new office/outpatient code guidelines for selecting the level of E/M service, In both sets of guidelines, prescription drug management appears in the moderate medical decision making (MDM) row. Neither the original guidelines nor the new guidelines state that a new prescription or change is needed in order to credit prescription drug management) Resolved Problems Problem Noted Date Diagnosed Date Resolved Date Mood disorder with psychosis 09/11/2023 05/19/2024 Sequela, post-stroke 09/25/2022 024 Arm paresthesia, right 08/14/202212/26 Bilateral leg paresthesia 08/14/2022 Daytime somnolence 08/14/2022 Dementia without behavioral disturbance 08/14/2022 05/09/2023 Left arm weakness 08/14/2022 05/29/2023 Arm paresthesia, left 08/14/20222022 Self-care deficit 08/14/2022 12/26/2022 Right sided cerebral hemisph ere cerebrovascular accident (CVA) 08/11/2022 Poor balance 08/11/2022 11/26/2024 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 05/28/2023 Intracranial hemorrhage 07/07/202205/04 Pituitary microadenoma 07/21/202005/19 Other allergic rhinitis 03/24/202012/04 Osteoporosis 11/12/2019 05/19/2024 Diabetic renal disease 10/13/201905/28 Cervical radiculopathy 03/24/201912/26 Mixed anxiety depressive disorder 07/10/2017 08/07/2023 Carpal tunnel syndrome of right wrist 04/05/2017 05/28/2023 Pure hypercholesterolemia 12/07/2014 Residual cognitive deficit a s late effect of cerebrovascular accident 12/07/2014 05/19/2024 Benign neoplasm of pituitary gland and craniopharyngeal duct (pouch) 01/10/2012 05/28/2023 Isaac disease 01/10/2012 05/28/2023 Morbid obesity 04/04/2007 09/11/2023 Essential hypertension 04/04/200711/04 Encounters Date Type Department Care Team Description 12/04/2024 11:30 AM EDT Office Visit [facility] [address] [place], [place] [address], [place] [address] Jori Connelly MD Benign essential hypertension; Hypertensive nephropathy; Stage 2 chronic kidney disease; Microalbuminuria; Mixed hyperlipidemia; Chronic hypokalemia; Type 2 diabetes mellitus with diabetic nephropathy, without long-term current use of insulin ([facility]) 12/04/[address] [facility] [address] [place] [address] Katey Kim RN 12/04/2024 Travel 12/04/[address] [facility] [address] [place] [address] Katey Kim RN 12/04/2024 [facility] [address] [place] [address] Jori Connelly MD Urine culture, Urinalysis with microscopic 11/26/2024 [facility] [address] [place] [address] [place], Jenifer, [place] Type 2 diabetes mellitus with diabetic nephropathy, without long-term current use of insulin ([facility]) 11/26/[address] [facility] [address] 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 [address] [place] [address] Katey Kim, PAULA 09/25/2024 3:30 PM EDT [facility] [address] [place] [address] [place] [address] Jori Connelly MD Peripheral edema (Primary Dx); Venous insufficiency; Medication side effect, initial encounter 09/25/2024 Travel 09/25/[address] [facility] [address] [place] [address] Katey Kim, PAULA from Last 3 Months Immunizations Immunization Administration Dates Next Due Influenza Whole 12/23/2008,12/22/2008 Influenza, High Dose Seasona l, Preservative Free 12/12/2016,12/05/2016 Influenza, High-dose Seasona l, Quadrivalent, Preservative Free 12/08/2020,12/07/2020 Influenza, Unspecified 02/03/2012 Influenza, injectable, quadr ivalent, preservative free 12/06/2016 Influenza, seasonal, injecta ble, preservative free 12/08/2013 Pfizer Purple Cap SARS-CoV-2 Vaccination 021,05/24/2020,05/02/2020 Pneumococcal Polysaccharide PPSV23 02/05/2012 Family History Medical History Relation Name Comments No Known Problems Brother CABG Father Coronary artery disease Father Heart disease Father Esophageal cancer Mother Breast cancer Sister Stage 2, at 75 YOA No Known Problems Son Relation Name Status Comments Brother 1 brother Father Mother Sister 2 sisters Son Alive 2 sons Social History Tobacco Use Types Packs/Day Years Used Date Smoking Tobacco: Never Smokeless Tobacco: Never Tobacco Cessation:Counseling Given: Yes Alcohol Use Standard Drinks/Week Comments Yes 4 [...] How often do you attend chur or christian services? Never 07/12/2023 Do you belong to any clubs o r organizations such as congregation groups, unions, fraternal or athletic groups, or [...] Recorded Patient Health Questionnaire-2 Score 0 12/04/2024 [facility] [place] of Occupat ional Health - Occupational Stress [...] Job Start Date Job End Date Works sales department supervisor Not on file Not on file Not on file Last Filed Vital Signs Vital Sign Reading Time Taken Comments Blood Pressure 106/68 12/04/2024 11:20 AM EDT Pulse 49 12/04/2024 11:20 AM EDT Temperature - - Respiratory Rate - - Oxygen Saturation 98% 12/04/2024 11:20 AM EDT Inhaled Oxygen Concentration - - Weight 61.7 kg (136 lb) 11/12/2024 2:02 PM EDT Height 139.7 cm (4' 7 ) 11/12/2024 2:02 PM EDT Body Mass Index 31.61 11/12/2024 2:02 PM EDT Plan of Treatment Upcoming Encounters Date Type Department Care Team (Late st Contact Info) Description 01/07/2025 11:00 AM EST Office Visit [facility] [address] [facility] 100 [place] [address] Jori Connelly MD 112 [facility] 100 [place] [address] Health Maintenance Due Date Last Done Comments CT Colonography 1953 FIT-DNA 1953 FIT 1953 FOBT 1955 Sigmoidoscopy 1955 Diabetes: Hemoglobin A1C 12/16/2024 025, 11/09/2023, 07/08/2022, Additional history exists Diabetes: Urine Protein Screening 06/17/2025 06/17/2024, 11/08/2021, 08/30/2020, Additional history exists Influenza Vaccine (#1) 2025 , 12/07/2020, 12/12/2016, Additional history exists Postponed from 11/03/2024 (Patient Refused) Diabetes: Retinopathy Screening 10/16/2025 10/17/2023, 08/22/2021, 09/12/2018, Additional history exists Pneumococcal Vaccine: 65+ Years (2 of 2 - PCV) 11/12/2025 02/05/2012 Postponed from 02/04/2013 (Patient Refused) Colonoscopy 10/11/2027 10/10/2017, 11/11/2012 Colorectal Cancer Screening 10/11/2027 Mammogram Discontinued 05/15/2023, 05/03, 11/05/2019, Additional history exists Procedures Procedure Name Priority Date/Time Associated Diagnosis Comments URINALYSIS, COMPLETE W/MICROSCOPY Routine 12/02/2024 1:49 PM EDT Acute renal failure, unspecified acute renal failure type Acute cystitis with hematuria CULTURE, URINE, ROUTINE Routine 12/02/2024 1:49 PM EDT Acute renal failure, unspecified acute renal failure type Acute cystitis with hematuria POCT URINALYSIS DIPSTICK Routine 11/12/2024 2:07 PM EDT Frequent urination Urinary urgency MICROALBUMIN / CREATININE URINE RATIO Routine 06/17/2024 2:21 PM EDT Essential (primary) hypertension Type 2 diabetes mellitus with diabetic nephropathy, without long-term current use of insulin ([facility]) Microalbuminuria HEMOGLOBIN A1C Routine 06/16/2024 10:27 AM EDT Type 2 diabetes mellitus with diabetic nephropathy, without long-term current use of insulin ([facility]) DIABETIC RETINOPATHY SCREENING - OU - BOTH EYES Routine 10/17/2023 11:39 AM EDT BI MAMMOGRAM SCREENING BILATERAL Routine 11/05/2019 Gastro-esophageal reflux disease without esophagitis Pure hypercholesterolemia Encounter for screening mammogram for malignant neoplasm of breast Cerebral atherosclerosis Encounter for screening for other disorder Essential (primary) hypertension Morbid (severe) obesity due to excess calories ([facility]) Encounter for general adult medical examination without abnormal findings Vitamin D deficiency, unspecified Proteinuria, unspecified Encounter for screening for osteoporosis Carpal tunnel syndrome, right upper limb Obesity, unspecified Encounter for screening for lipoid disorders Radiculopathy, cervical region Other specified counseling White matter disease, unspecified Unspecified dementia, unspecified severity, without behavioral disturbance, psychotic disturbance, mood disturbance, and anxiety (HCC) Chronic fatigue, unspecified Cognitive deficits following cerebrovascular disease Personal history of other specified conditions Bariatric surgery status Presence of artificial knee joint, bilateral Difficulty in walking, not elsewhere classified Other disorders of pituitary gland (HCC) Asymptomatic postprocedural ovarian failure Hypokalemia Type 2 diabetes mellitus with diabetic nephropathy (HCC) Other specified anxiety disorders Presbyopia Puckering of macula, right eye COLONOSCOPY Routine 10/10/2017 12:00 PM EDT from Last 3 Months or Most Recently Relevant to Health Maintenance Results * (ABNORMAL) Urinalysis with microscopic (12/02/2024 [...] Performing Organization Information Site ID: QPT Name: [facility] Address: [address] [place] [address], [address] [place], [place] [id number] Director: Naveed Long MD Jori Connelly MD LAB URINE ORDERABLES Final R esult Performing Organization Address [facility] Co de Phone Number [facility] * Urine culture (12/02/2024 1:49 PM EDT) MICRO NUMBER [id number] [facility] SPECIMEN QUALITY Adequate [facility] SOURCE: ([facility]) [...] Performing Organization Information Site ID: QPT Name: [facility] Address: [address] [place] [address], [address] [place] [phone] Director: Naveed Long MD Jori Connelly MD LAB MICROBIOLOGY - GENERAL O RDERABLES Final Result [facility] * (ABNORMAL) POCT urinalysis dipstick manually resulted (11/12/2024 2:07 PM EDT) Color, UA Kelly Clarity, UA Cloudy Glucose, UA Positive Negative - 2000(110) ++++ mg/dL Bilirubin, UA Negative Negative - 4(70) +++ mg/dL Ketones, UA Positive Negative - 160(16) ++++ mg/dL Comment:2+ Spec Grav, UA 1.025 1 - 1.03 Blood, UA Positive Negative - 50 Celso/mcL Comment:1+ pH, UA 5.0 5 - 9 Protein, UA 3+ Negative - 2000(20) ++++ mg/dL Urobilinogen, UA 0.2 0.2 - 12 mg/dL Leukocytes, UA 3+ Negative - 500+++ David/mcL Nitrite, UA Negative Negative - Positive Urine 11/12/2024 2:07 PM EDT Jori Connelly MD POINT OF CARE TEST ENTER/GARY T ORDERABLES Final Result * Microalbumin / creatinine urine ratio (06/17/2024 2:21 PM EDT) CREATININE, RANDOM URINE 134 20 - 275 mg/dL [facility] ALBUMIN, URINE 2.6 See Note: mg/dL [facility] Comment: Reference Range: Reference Range Not established ALBUMIN/CREATININE RATIO, RANDOM URINE 19 <30 mg/g creat [facility] Comment: The ADA defines abnormalities in albumin excretion as follows: Albuminuria Category Result (mg/g creatinine) Normal to Mildly increased <30 Moderately increased 30-299 Severely increased > OR = 300 The ADA recommends that at least two of three specimens collected within a 3-6 month period be abnormal before considering a patient to be within a diagnostic category. Urine Urine specimen obtained by clean catch procedure / Unknown 06/17/2024 2:21 PM EDT 06/18/2024 4:16 PM EDT Narrative [facility] - 06/19/2024 10:27 AM EDT SPLIT 06/16/2024 FROM [id number] Resulting Agency Comment Performing Organization Information Site ID: QPT Name: [facility] Address: [address] [place] [address], [address] [place] [phone] Director: Naveed Long MD Jori Connelly MD LAB URINE ORDERABLES Final R esult Performing Organization Address [facility] Co de Phone Number [facility] * (ABNORMAL) Hemoglobin A1c (06/16/2024 10:27 AM EDT) Hemoglobin A1C 5.9(H) <5.7 % [facility] Comment: For someone without known diabetes, a hemoglobin A1c value between 5.7% and 6.4% is consistent with prediabetes and should be confirmed with a follow-up test. For someone with known diabetes, a value <7% indicates that their diabetes is well controlled. A1c targets should be individualized based on duration of diabetes, age, comorbid conditions, and other considerations. This assay result is consistent with an increased risk of diabetes. Currently, no consensus exists regarding use of hemoglobin A1c for diagnosis of diabetes for children. Blood Venous blood specimen / Unknown 06/16/2024 10:27 AM EDT 06/16/2024 10:27 AM EDT Narrative [facility] - 06/17/2024 3:24 AM EDT FASTING:YES COLLECTION KIT GIVEN TO PATIENT. PATIENT ADVISED TO RETURN. FASTING: YES Resulting Agency Comment Performing Organization Information Site ID: QPT Name: [facility] Address: [address] [place] [address], [address] [place] [phone] Director: Naveed Long MD Jori Connelly MD LAB BLOOD ORDERABLES Final R esult Performing Organization Address [facility] Co de Phone Number [facility] * Diabetic Retinopathy Screening - OU - Both Eyes (10/17/2023 11:39 AM EDT) Anatomical Region Laterality Modality Head Other Citlalli Diaz OD OPHTH PHOTOGRAPHY Final Result * Bilateral screening mammogram (11/05/2019) Anatomical Region Laterality Modality Breast Bilateral Mammography Impressions 11/05/2019 12:00 AM EDT BIRADS 2 : BENIGN FINDINGS, NORMAL INTERVAL FOLLOW UP. MAMMOGRAPHY IS VERY IMPORTANT TO YOUR HEALTH. THE CURRENT [place] [employer] OF RADI[employer] AND NATIONAL COMPREHENSIVE CANCER NETWORK GUIDELINES RECOMMEND ANNUAL MAMMOGRAPHY BEGINNING AT AGE 40. THIS FACILITY UTILIZES A REMINDER SYSTEM TO ENSURE ALL PATIENTS RECEIVE A REMINDER NOTIFICATION AT THE APPROPRIATE TIME BASED ON THE RECOMMENDATIONS OF THIS EXAM. BOARD CERTIFIED RADIOLOGIST. ACCREDITED BY THE APR AND FDA. Report reported and signed by India Zapien on 11/12/2019825 Narrative 11/05/2019 12:00 AM EDT PERFORMED AT [facility] LOCATION:[place] [address] EXAMINATION: Screening Mammogram CLINICAL HISTORY: No family history breast cancer. COMPARISON: Dating back to January 27, 2014 TECHNIQUE: 2D and 3D Tomosynthesis of the right and left breasts was performed. FINDINGS: There are scattered fibroglandular densities within each breast. There are no suspicious masses, areas of suspicious microcalcifications or areas of architectural distortion identified. No evidence of skin thickening. There are stable benign-appearing calcifications present. There are vascular calcifications present. Procedure Note CONVERSION, GENERIC - 09/08/2022 PERFORMED AT [facility] LOCATION:[place] [address] EXAMINATION: Screening Mammogram CLINICAL HISTORY: No family history breast cancer. COMPARISON: Dating back to January 27, 2014 TECHNIQUE: 2D and 3D Tomosynthesis of the right and left breasts wasperformed. FINDINGS: There are scattered fibroglandular densities within each breast. There are no suspicious masses, areas of suspicious microcalcifications orareas of architectural distortion identified. No evidence of skin thickening.There are stable benign-appearing calcifications present. There are vascularcalcifications present. IMPRESSION: BIRADS 2 : BENIGN FINDINGS, NORMAL INTERVAL FOLLOW UP. MAMMOGRAPHY IS VERY IMPORTANT TO YOUR HEALTH. THE CURRENT AMERICAN[employer]LEGE OF RADIOLOGY AND NATIONAL COMPREHENSIVE CANCER NETWORK GUIDELINES RECOMMEND ANNUALMAMMOGRAPHY BEGINNING AT AGE 40. THIS FACILITY UTILIZES A REMINDER SYSTEM TO ENSURE ALL PATIENTS RECEIVE AREMINDER NOTIFICATION AT THE APPROPRIATE TIME BASED ON THE RECOMMENDATIONS OF THISEXAM. BOARD CERTIFIED RADIOLOGIST. ACCREDITED BY THE APR AND FDA. Report reported and signed by India Zapien on 11/12/2019825 Jori Connelly MD IMG BI PROCEDURES Final Resu lt * Colonoscopy (10/10/2017 12:00 PM EDT) Anatomical Region Laterality Modality Endoscopy 10/10/2017 12:0 0 PM EDT Narrative 10/10/2017 12:00 PM EDT PERFORMED AT [facility] LOCATION:[id number] Normal - recommend repeat in 5 years based on family hx. Procedure Note CONVERSION, GENERIC - 07/19/2022 PERFORMED AT [facility] LOCATION:[id number] Normal - recommend repeat in 5 years based on family hx. Jori Connelly MD ENDOSCOPY PROCEDURE ORDERABL ES Final Result from Last 3 Months or Most Recently Relevant to Health Maintenance Insurance [employer] Care Teams Sweatband Maker Relationship Specialty Start Date End Date Jori Connelly MD [address] [address] PCP - General Family Medicine 09/25/24 Jori Connelly MD 112 [facility] [address] [place] [address] PCP - Medical [place] 03/05/2403/04 Katey Kim, PAULA [address] [place] [address] Registered Nurse Family Medicine 07/12/23
--- OUTSIDE RECORDS SUMMARY | 2024-12-04 13:55 | XMS_ITS ---
Author Organization [facility] Address [address] [place] [address] Care Team Providers Care Bdr Name Role Phone Katey Kim RN Unavailable [phone] Jori Connelly MD Primary Care Provider [phone] Jori Connelly MD Unavailable [phone] Chronic Care Management (CCM) Status:Enrolled (Active) Start date:07/12/2023 Enrollment date:07/12/2023 Enrollment reason:Identified using hospital discharge data Overview Please assess for Care Management needs. 07/12/23, 2:34 PM - Katey Kim RN- Patient gives verbal consent to be enrolled in CCM Program and understands there could be a bill for this service. CCM Bill No Case Team Name Relationship Phone Katey Kim RN(Responsible Staff) Registere mynor Nurse [phone] Continued Care and Services Coordination
--- OUTSIDE RECORDS SUMMARY | 2024-12-04 13:55 | XMS_ITS | Encounter Summary ---
Author Organization [facility] Address [address] [place] [address] Care Team Providers Care Public Address Technician Name Role Phone Jori Connelly MD Unavailable Jori Connelly MD Primary Care Provider [phone] Katey Kim RN Unavailable [phone] Katey Kim RN Unavailable [phone] Jori Connelly MD Unavailable [phone] Jori Connelly MD Unavailable + [phone] Jori Connelly MD Primary Care Provider + Jori Connelly MD Unavailable [phone] Encounter Details Date Type Department Care Team (Late st Contact Info) Description 09/25/2022 Orders Only [facility] [address] [place] [address] Jori Connelly MD [address] [place] [address] (Fax) Social History Tobacco Use Types Packs/Day Years Used Date Smoking Tobacco: Never Smokeless Tobacco: Never Alcohol Use Standard Drinks/Week Comments Yes 2 (1 standard drink = 0.6 oz pure alcohol) Caffeine intake: 1 cup per day coffee PHQ-2 Answer Date Recorded Patient Health Questionnaire-2 Score 0 09/21/2022 Education Answer Date Recorded What is the [...] 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 No / Unsure 09/21/2022 9:19 AM EDT documented as of this encounter Plan of Treatment Upcoming Encounters Date Type Department Care Team (Late st Contact Info) Description 01/07/2025 11:00 AM EST Office Visit [facility] [address] [place] [address] Jori Connelly MD [address] [facility] [place] [address] (Fax) documented as of this encounter Visit Diagnoses Not on filedocumented in this encounter Additional Health Concerns Assessment Noted Time A fall risk assessment has been complete d for the patient 09/21/2022 9:46 AM EDT documented as of this encounter Care Teams Public Address Technician Relationship Specialty Start Date End Date Jori Connelly MD [address] [facility] [address] [place] [address] PCP - ACO Reach 07/27/22 04/10/24 Jori Connelly MD [address] [facility] [address] [place] [address] PCP - General Family Medicine 08/03/22 09/24/24 Jori Connelly MD [address] [place] [address] [place] [address] PCP - Devoted 08/04/23 03/04/24 Jori Connelly MD [address] [place] [address] PCP - ACO Reach 04/18/24 06/05/24 Jori Connelly MD [address] [place] [address] PCP - General Family Medicine 09/25/24 Jori Connelly MD [address] [address] PCP - Medical [facility] 03/05/2403/04 Katey Kim RN [address] [place] [address] Registered Nurse Family Medicine 01/04/23 01/09/23 Katey Kim RN [address] [place] [address] Registered Nurse Family Medicine 07/12/23 documented as of this encounter
--- OUTSIDE RECORDS SUMMARY | 2024-12-04 13:55 | XMS_ITS | Encounter Summary ---
Author Organization [facility] Address [address] [place] [address] Care Team Providers Care Reaming Press Operator Name Role Phone Jori Connelly MD Unavailable [phone] Jori Connelly MD Primary Care Provider [phone] Katey Kim RN Unavailable [phone] Katey Kim RN Unavailable [phone] Jori Connelly MD Unavailable [phone] Jori Connelly MD Unavailable + [phone] Jori Connelly MD Primary Care Provider + Jori Connelly MD Unavailable [phone] Encounter Details Date Type Department Care Team (Late st Contact Info) Description 10/23/2022 Abstract [facility] [address] [facility] [address] [place] [address] Zahc Hamilton, PT [address] [facility] [address] [place] [address] Social History Tobacco Use Types Packs/Day Years [...] 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 Not on file Not on file documented as of this encounter Plan of Treatment Upcoming Encounters Date Type Department Care Team (Late st Contact Info) Description 01/07/2025 11:00 AM EST Office Visit [facility] [place] [facility] Family Medicine [address] [place] [address] [place] [address] Jori Connelly MD [address] [place] [address] (Fax) documented as of this encounter Visit Diagnoses Not on filedocumented in this encounter Additional Health Concerns Assessment Noted Time A fall risk assessment has been complete d for the patient 09/21/2022 9:46 AM EDT documented as of this encounter Care Teams Reaming Press Operator Relationship Specialty Start Date End Date Jori Connelly MD [address] [place] [address] (Fax) PCP - ACO Reach 07/27/22 04/10/24 Jori Connelly MD [address] [place] [address] (Fax) PCP - General Family Medicine 08/03/22 09/24/24 Jori Connelly MD [address] [place] [address] (Fax) PCP - Devoted 08/04/23 03/04/24 Jori Connelly MD [address] [place] [address] (Fax) PCP - ACO Reach 04/18/24 06/05/24 Jori Connelly MD [address] [place] [address] PCP - General Family Medicine 09/25/24 Jori Connelly MD [address] [place] [address] PCP - Medical [facility] 03/05/2403/04 Katey Kim RN [address] [place] [address] Registered Nurse Family Medicine 01/04/23 01/09/23 Katey Kim RN [address] [place] [address] Registered Nurse Family Medicine 07/12/23 documented as of this encounter
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
--- OUTSIDE RECORDS SUMMARY | 2024-12-04 13:55 | XMS_ITS | Encounter Summary ---
Author Organization [facility] Address [address] [place] [address] Phone Care Team Providers Care Accounts Payable Specialist Name Role Phone Unavailable Primary Care Provider Unavailabl e Encounter Details Date Type Department Care Team (Late st Contact Info) Description 11/11/2021 Orders Only [facility] [address] [place] [address] Conversion, Onbase Social History Tobacco Use Types Packs/Day Years Used Date Smoking Tobacco: Never Assessed Comments Unknown Sex and Gender Information Value Date Recorded Sex Assigned at Not on file Legal Sex Female 8:46 AM EST Gender Identity Not on file Sexual Orientation Not on file documented as of this encounter Plan of Treatment Scheduled Orders Name Type Priority Associated Diagnoses Orde r Schedule OUTSIDE LAB SCAN Lab Ordered: 11/11/2021 documented as of this encounter Visit Diagnoses Not on filedocumented in this encounter
--- OUTSIDE RECORDS SUMMARY | 2024-12-04 13:55 | XMS_ITS | Patient Health Record ---
Author Organization [facility] Address [address] [place] [address] Care Team Providers Care Seed Yeast Operator Name Role Phone None, Unknown or Primary Care Provider Unavailab le Reason For Referral No Information Medications Medication SIG (Take, Route, Frequency, Duration) Notes Start Date End Date Status Krill Oil 500 MG Orally once daily Active Multivitamins Orally once daily *please review for potential update for e-prescription and drug interaction check* Active PriLOSEC 20mg tablets 1 1D *please review for potential update for e-prescription and drug interaction check* 10/04/2011 Not-Taking Zinc 50mg tablets 1 1D *please review for potential update for e-prescription and drug interaction check* 10/04/2011 Not-Taking Pravachol 40mg tablets 1 1D *please review for potential update for e-prescription and drug interaction check* 10/04/2011 Active Potassium 10 mEq 1 BID *please review for potential update for e-prescription and drug interaction check* 03/14/2013 Active Vitamin D3 5000 UNIT Orally Once a day *please richard persaud for potential update for e-prescription and drug interaction check* Not-Taking CeleXA 10 MG 2 tablets Orally Once a day Active Norvasc 5mg tablets 1 1D *please revalec goldberg for potential update for e-prescription and drug interaction check* Increased dosage from 5mg to 10mg daily---04/14/11Re duce dosage from 10mg to 5mg --08/16/12 03/05/2000 Active Losartan Potassium 100 MG 1 tablet Orally Once a day Active Problems Problem Type SNOMED Code ICD Code Onset Dates Problem Status W/U Status Risk Notes Problem Chronic kidney disease due to hypertension (802533700515884 ) Hypertensive chronic kidney disease with stage 1 through stage 4 chronic kidney disease, or unspecified chronic kidney disease (I12.9) Active confirmed Problem Chronic kidney disease stage 2 (415111330) Chronic kidney disease, stage 2 (mild) (N18.2) Active confirmed Problem Overweight (562260747) Over weight (E66.3) Active confirmed Problem Electrolytes abnormal (037494610) Electrolyte abnormality (E87.8) Active confirmed Plan Of Treatment Pending Test Test Name Order Date Phosphorus, Serum 07/02/2015 Phosphorus, Serum 10/22/2015 Phosphorus, Serum 06/02/2016 Uric Acid, Serum 06/02/2016 Uric Acid, Serum 10/22/2015 Uric Acid, Serum 07/02/2015 Magnesium, Serum 07/02/2015 Magnesium, Serum 10/22/2015 Magnesium, Serum 06/02/2016 CBC, Platelet; No Differential 7 CBC, Platelet; No Differential 6 CBC, Platelet; No Differential 6 Renal Panel (10) 07/02/2015 Renal Panel (10) 10/22/2015 Renal Panel (10) 06/02/2016 URINALYSIS WITH MICROSCOPIC EXAM 017 URINALYSIS WITH MICROSCOPIC EXAM 016 URINALYSIS WITH MICROSCOPIC EXAM 016 urine protein 07/02/2015 urine protein 10/22/2015 urine protein 06/02/2016 urine creatinine 06/02/2016 urine creatinine 10/22/2015 urine creatinine 07/02/2015 Insurance Providers Payer Name Payer Address Payer Phone Subscriber Number Group Number Insured Name Patient Relationship to Insured Coverage Start Date Coverage End Date [employer] MEDICARE ADV PLAN [address] [place] [address] [id number] Evelyn Javed Self - patient is the insured 2 MEDICAID [place] 2ND INS [address] [place], [place] [id number] Evelyn Javed Self - patient is the insured 2 Medical (General) History Surgical History Surgery Date(Month/Year) cataract surgery / eye lids gastric bypass skin removal tumor pitullary gland hysterectomy 1986 knee replacements 1998,2001,2006,2008 apendix removal/ rt ovary 1972 Hospitalization History Reason Date(Month/Year) transpheroidal surgery for cavernous brian [facility] 01/2010 gastric bypass surgery 05/2011
--- OUTSIDE RECORDS SUMMARY | 2024-12-04 13:55 | XMS_ITS | Encounter Summary ---
Author Organization [facility] Address [address] [place] [address] Care Team Providers Care Aircraft Cabin Cleaner Name Role Phone Jori Connelly MD Unavailable Jori Connelly MD Primary Care Provider [phone] Katey Kim RN Unavailable [phone] Jori Connelly MD Unavailable [phone] Jori Connelly MD Unavailable [phone] Jori Connelly MD Primary Care Provider + [phone] Jori Connelly MD Unavailable [phone] Encounter Details Date Type Department Care Team (Late st Contact Info) Description 08/27/2023 Orders Only [facility] [place] [address] Family Medicine 112 [facility] 100 [place] [address] Jori Connelly MD 112 [facility] 100 [place] [address] Social History Tobacco Use Types Packs/Day Years [...] often do you attend chur ch or denominational services? Never 07/12/2023 Do you belong to any clubs o r organizations such as jain groups, unions, fraternal or athletic groups, or [...] Recorded Patient Health Questionnaire-2 Score 1 05/28/2023 [facility] [place] of Occupat ional Health - Occupational Stress [...] place to sleep or slept in a jail (including now)? 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 Not on file Not on file documented as of this encounter Plan of Treatment Upcoming Encounters Date Type Department Care Team (Late st Contact Info) Description 01/07/2025 11:00 AM EST Office Visit [facility] 112 [facility] 100 [place] [address] Jori Connelly MD 112 [facility] 100 [place] [address] (Fax) documented as of this encounter Visit Diagnoses Not on filedocumented in this encounter Additional Health Concerns Assessment Noted Time PHQ-9 Depression Total Score: 9 05/28/19 10:00 AM EDT A fall risk assessment has been complete d for the patient 09/21/2022 9:46 AM EDT documented as of this encounter Care Teams Aircraft Cabin Cleaner Relationship Specialty Start Date End Date Jori Connelly MD [address] [place] [address] [address] (Fax) PCP - ACO Reach 07/27/22 04/10/24 Jori Connelly MD [address] [place] [address] [address] (Fax) PCP - General Family Medicine 08/03/22 09/24/24 Jori Connelly MD [address] [place] [address] [address] (Fax) PCP - Devoted 08/04/23 03/04/24 Jori Connelly MD [address] [place] [address] [address] (Fax) PCP - ACO Reach 04/18/24 06/05/24 Jori Connelly MD [address] [place] [address] [address] (Fax) PCP - General Family Medicine 09/25/24 Jori Connelly MD [address] [place] [address] [address] (Fax) PCP - Medical [facility] 03/05/2403/04 Katey Kim, PAULA [address] [facility] [address] [place] [address] Registered Nurse Family Medicine 07/12/23 documented as of this encounter
--- OUTSIDE RECORDS SUMMARY | 2024-12-04 13:55 | XMS_ITS | Encounter Summary ---
Author Organization [facility] Address [address] [place] [address] Care Team Providers Care Gluing Machine Operator Electronic Name Role Phone Jori Connelly MD Unavailable [phone] Jori Connelly MD Primary Care Provider + Katey Kim RN Unavailable [phone] Katey Kim RN Unavailable [phone] Jori Connelly MD Unavailable + [phone] Jori Connelly MD Unavailable + [phone] Jori Connelly MD Primary Care Provider + Jori Connelly MD Unavailable [phone] Encounter Details Date Type Department Care Team (Late st Contact Info) Description 09/14/2022 Abstract [facility] [address] [place] [address] George Sanchez, PT [address] [facility] [place] [address] Social History Tobacco Use Types Packs/Day Years [...] 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 Not on file Not on file documented as of this encounter Plan of Treatment Upcoming Encounters Date Type Department Care Team (Late st Contact Info) Description 01/07/2025 11:00 AM EST Office Visit [facility] [address] [place] [address] Jori Connelly MD [address] [place] [address] (Fax) documented as of this encounter Visit Diagnoses Not on filedocumented in this encounter Care Teams Gluing Machine Operator Electronic Relationship Specialty Start Date End Date Jori Connelly MD [address] [place] [address] (Fax) PCP - ACO Reach 07/27/22 04/10/24 Jori Connelly MD [address] [place] [address] (Fax) PCP - General Family Medicine 08/03/22 09/24/24 Jori Connelly MD [address] [place] [address] (Fax) PCP - Devoted 08/04/23 03/04/24 Jori Connelly MD [address] [place] [address] (Fax) PCP - ACO Reach 04/18/24 06/05/24 Jori Connelly MD [address] [place] [address] (Fax) PCP - General Family Medicine 09/25/24 Jori Connelly MD 112 [facility] [address] [place] [address] PCP - Medical [place] 03/05/2403/04 Katey Kim RN [address] [place] [address] [place] [address] Registered Nurse Family Medicine 01/04/23 01/09/23 Katey Kim RN [address] [facility] [address] [place] [address] Registered Nurse Family Medicine 07/12/23 documented as of this encounter
--- OUTSIDE RECORDS SUMMARY | 2024-12-04 13:55 | XMS_ITS ---
Author Organization [facility] Care Team Providers Care Cemetery Laborer Name Role Phone Raiza Domínguez Unavailable Unavailable Haja Matos Unavailable Unavailable Richelle Mcgregor Unavailable Unavailable Derek Ross Unavailable Unavailable Arlen Nance Unavailable Unavaila candice Taylor, Mirela Gonsalez Unavailable Unavaila candice Zapien SR. PAYROLL PROCESSOR, Mily Bell Unavailable Unavailable Bakchema, Dejah Unavailable Unavailable Natalia Valente Unavailable Unavailable Demetra SR. PAYROLL PROCESSOR-C, Janae Unavailable Unavailable Allergies and adverse reactions No Known Allergies Care Team Name Role Address Phone Organization Dates Derek Ross [address], [address], [place] (Office): : [facility] 09/12/2023 - 09/21/2023 Raiza Domínguez [address] [place], [address], [place] (Office): [facility] 09/12/2023 - 09/21/2023 Haja Matos [address], [address], [place] (Office): : : [facility] 09/12/2023 - 09/21/2023 Richelle Mcgregor [address] [place], [address], [place] (Office): [facility] 09/12/2023 - 09/21/2023 Arlen Nance [address] [place], [address], [facility] (Office): : : [facility] 09/12/2023 - 09/21/[address], [address], [facility] (Cell): [facility] 09/12/2023 - 09/21/2023 Mily Zapien NP [address] [place], [address], [facility] (Office): : : [facility] 09/12/2023 - 09/21/2023 Dejah Castro [facility] (Cell): [facility] 09/12/2023 - 09/21/2023 Natalia Valente [address] [place], [address], [facility] (Office): : [facility] 09/12/2023 - 09/21/2023 Janae Mccrary SR. PAYROLL PROCESSOR-C [address] [facility] [address], [place], [address], [facility] (Cell): : : [facility] 09/12/2023 - 09/21/2023 Problems Problem # Description Date of onset Resolved Date Code CodeSystem Concern Status 1 ESSENTIAL (PRIMARY) HYPERTENSION [address] active 2 HOMICIDAL IDEATIONS [address] active 3 MAJOR DEPRESSIVE DISORDER, RECURRENT SEVERE WITHOUT PSYCHOTIC FEATURES [address] active 4 PURE HYPERCHOLESTEROL EMIA, UNSPECIFIED [address] active 5 SUICIDAL IDEATIONS [address] active 6 UNSPECIFIED SYMPTOMS AND SIGNS INVOLVING COGNITIVE FUNCTIONS FOLLOWING CEREBRAL INFARCTION [address] active 7 VASCULAR DEMENTIA, UNSPECIFIED SEVERITY, WITH AGITATION [address] active Reason for Referral No Reasons for Referral Entered Social History Social History Observation Description Start Date End Date Code Code System Current Smoking Status Tobacco smoking consumption unknown 558834311 SNOMED CT Sex Assigned At Female 1955 [address]-0 [facility] Gender Identity Sexual Orientation Vital Signs Code Code System Vitals Name Values and Units Timing Information 9279-1 [facility] Respiratory Rate Value=16.0 Units=/m in 09/21/2023 8462-4 [facility] Blood Pressure-Diastolic Value=58 Un its=mmHg 09/21/2023 8480-6 [facility] Blood Pressure-Systolic Dhxjc=717 Un its=mmHg 09/21/2023 8310-5 [facility] Body Temperature Value=97.2 Units= F 09/21/2023 8867-4 [facility] Heart rate Value=62.0 Units=/min 58452-2 [facility] O2 % BldC Oximetry Value=96.0 Units= % 09/21/2023 35983-0 [facility] Pain Level Value=0.0 09/20/2023 18277-0 [facility] Weight Bomic=380.3 Units=Lbs 8302-2 [facility] Height Value=54.0 Units=Inches 09/12/2023
--- OUTSIDE RECORDS SUMMARY | 2024-12-04 13:55 | XMS_ITS | Encounter Summary ---
Author Organization [facility] Address [address] [place] [address] Care Team Providers Care Flying I Instructor Name Role Phone Jori Connelly MD Unavailable + [phone] Jori Connelly MD Primary Care Provider + Katey Kim RN Unavailable [phone] Katey Kim RN Unavailable [phone] Jori Connelly MD Unavailable + [phone] Jori Connelly MD Unavailable + [phone] Jori Connelly MD Primary Care Provider + Jori Connelly MD Unavailable + [phone] Encounter Details Date Type Department Care Team (Late st Contact Info) Description 09/01/2022 Abstract [facility] [address] [facility] [address] [place] [address] Clarissa Hamilton, OT [address] [facility] [address] [facility] [address] [place] [address] Social History Tobacco Use Types Packs/Day Years [...] 11:00 AM EST Office Visit [facility] [address] [place] [address] Jori Connelly MD [address] [place] [address] (Fax) documented as of this encounter Visit Diagnoses Not on filedocumented in this encounter Care Teams Flying I Instructor Relationship Specialty Start Date End Date Jori Connelly MD [address] [place] [address] (Fax) PCP - ACO Reach 07/27/22 04/10/24 Jori Connelly MD [address] [place] [address] (Fax) PCP - General Family Medicine 08/03/22 09/24/24 Jori Connelly MD [address] [place] [address] (Fax) PCP - Devoted 08/04/23 03/04/24 Jori Connelly MD [address] [place] [address] (Fax) PCP - ACO Reach 04/18/24 06/05/24 Jori Connelly MD [address] [place] [address] (Fax) PCP - General Family Medicine 09/25/24 Jori Connelly MD [address] [facility] [address] [place] [address] PCP - Medical [place] 03/05/2403/04 Katey Kim RN [address] [place] [address] Registered Nurse Family Medicine 01/04/23 01/09/23 Katey Kim RN [address] [place] [address] Registered Nurse Family Medicine 07/12/23 documented as of this encounter
--- OUTSIDE RECORDS SUMMARY | 2024-12-04 13:55 | XMS_ITS | Encounter Summary ---
Author Organization [facility] Address [address] [place] [address] Care Team Providers Care Operations Consultant Name Role Phone Jori Connelly MD Unavailable Jori Connelly MD Primary Care Provider [phone] Katey Kim RN Unavailable [phone] Jori Connelly MD Unavailable Jori Connelly MD Unavailable [phone] Jori Connelly MD Primary Care Provider [phone] Jori Connelly MD Unavailable [phone] Encounter Details Date Type Department Care Team (Late st Contact Info) Description 07/26/2023 Orders Only [facility] [place] [facility] Family Medicine [address] [place] [address] Jori Connelly MD 112 [facility] 100 [place] [address] (Fax) Social History Tobacco Use Types Packs/Day [...] How often do you attend chur or tenriism services? Never 07/12/2023 Do you belong to any clubs o r organizations such as samaritan groups, unions, fraternal or athletic groups, or [...] Recorded Patient Health Questionnaire-2 Score 1 05/28/2023 [facility] - Occupational [...] place to sleep or slept in a [place] health care facility (including now)? 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 Not on file Not on file documented as of this encounter Plan of Treatment Upcoming Encounters Date Type Department Care Team (Late st Contact Info) Description 01/07/2025 11:00 AM EST Office Visit [facility] [address] [facility] 100 [place] [address] Jori Connelly MD 112 [facility] 100 [place] [address] documented as of this encounter Procedures Procedure Name Priority Date/Time Associated Diagnosis Comments TSH Routine 07/25/2023 8:10 AM EDT VITAMIN B12 Routine 07/25/2023 8:10 AM EDT documented in this encounter Results * Vitamin B12 (07/25/2023 8:10 AM EDT) Blood Venous blood specimen / Unknown Jori Connelly MD LAB BLOOD ORDERABLES Final R esult * TSH (07/25/2023 8:10 AM EDT) Blood Venous blood specimen / Unknown Jori Connelly MD LAB BLOOD ORDERABLES Final R esult documented in this encounter Visit Diagnoses Not on filedocumented in this encounter Additional Health Concerns Assessment Noted Time PHQ-9 Depression Total Score: 9 05/28/19 10:00 AM EDT A fall risk assessment has been complete d for the patient 09/21/2022 9:46 AM EDT documented as of this encounter Care Teams Operations Consultant Relationship Specialty Start Date End Date Jori Connelly MD [address] [place] [address] [address] PCP - ACO Reach 07/27/22 04/10/24 Jori Connelly MD [address] [place] [address] [place] [address] PCP - General Family Medicine 08/03/22 09/24/24 Jori Connelly MD [address] [place] [address] [place] [address] PCP - Devoted 08/04/23 03/04/24 Jori Connelly MD [address] [place] [address] [place] [address] PCP - ACO Reach 04/18/24 06/05/24 Jori Connelly MD [address] [place] [facility] [address] [place] [address] PCP - General Family Medicine 09/25/24 Jori Connelly MD [address] [place] [address] [address] PCP - Medical [place] 03/05/2403/04 Katey Kim, PAULA [address] [address] Registered Nurse Family Medicine 07/12/23 documented as of this encounter
--- OUTSIDE RECORDS SUMMARY | 2024-12-04 13:55 | XMS_ITS | Clinical Summary ---
Author Organization [facility] Address [address] [place] [address] Care Team Providers Care Vice President Talent Management Name Role Phone Jori Connelly MD Primary Care Provider Allergies No known active allergies Medications BIOTIN ORAL Take 1,000 mg by mouth once daily. not taking Active cyanocobalamin (VITAMIN B-12) 1,000 mcg Tab Take 1,000 mcg by mouth once daily. Active Zinc Gluconate 50 mg tablet Take 50 mg by mouth once daily. Active Acetaminophen 650 mg Tab Take 650 mg by mouth every 6 hours as needed. 60 tablet 0 2 Active PANTOPRAZOLE SODIUM (PANTOPRAZOLE ORAL)Indications: Maumee's disease (HCC) Take 40 mg by mouth once daily. Active multivitamin tabletIndications :Isaac's disease (HCC) Take 1 tablet by mouth once daily. Active CALCIUM CARB/VIT D2/MINERALS (CALTRATE PLUS ORAL)Indications: Isaac's disease (HCC) Take by mouth once daily. not taking Active amLODIPine (NORVASC) 10 mg tablet Take 10 mg by mouth once daily. Active citalopram hydrobromide (CELEXA) 10 mg tablet Take 10 mg by mouth once daily. Active losartan (COZAAR) 100 mg tablet Take 100 mg by mouth once daily. Active diphenhydrAMINE-A cetaminophen 25-500 mg cap Take 1 tablet by mouth as needed. Brand name: CounterAct PM by Santino Active potassium chloride 10 mEq tablet Take 10 mEq by mouth twice daily. 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 Morbid obesity 04/04/2007 Unspecified essential hypertension 04/04/2007 Unspecified sleep apnea 04/04/2007 Other and unspecified hyperlipidemia 04/04/2007 Immunizations Immunization Administration Dates Next Due influenza vaccine, unspecified formulation 02/02 pneumococcal polysaccharide (PPV23) vaccine, 23 valent (PNEUMOVAX 23) 02/05/2012 Family History Medical History Relation Comments Cancer Mother esophageal Diabetes Mother Other [Other] Other sister's salina thornton tm Breast Cancer Sister Relation Status Comments Mother Other Sister Social History Tobacco Use Types Packs/Day Years Used Date Smoking Tobacco: Never Smokeless Tobacco: Never Alcohol Use Standard Drinks/Week Comments No 0 (1 standard drink = 0.6 oz pur e alcohol) Area Deprivation Index Answer Date Adrian rded National Score (1-100), lower number is lower ri sk Not on file 02/09/2020 State Score (1-10), lower number is lower risk N ot on file 02/09/2020 Data from: https://www.neighborhoodatlas.[facility]/. Last address used for calculation Not on file 02/09/2020 Comments No Sex and Gender Information Value Date Recorded Sex Assigned at Not on file Legal Sex Female 8:09 AM EST Gender Identity Not on file Sexual Orientation Not on file Last Filed Vital Signs Vital Sign Reading Time Taken Comments Blood Pressure 119/64 09/06/2016 2:39 PM EDT Pulse 50 09/06/2016 2:39 PM EDT Temperature 35.8 C (96.5 F) 09/06/2016 2:39 PM EDT Respiratory Rate 18 03/06/2012 11:00 AM EST Oxygen Saturation 94% 02/05/2012 6:00 AM EST Inhaled Oxygen Concentration - - Weight 70.8 kg (156 lb) 09/06/2016 2:39 PM EDT Height 139.7 cm (4' 7 ) 09/06/2016 2:39 PM EDT Body Mass Index 36.26 09/06/2016 2:39 PM EDT Plan of Treatment Health Maintenance Due Date Last Done Comments Anxiety Screening 07/28/1971 Depression Screening 07/28/1971 Hepatitis C Screening 07/28/1971 DTaP,Tdap,Td Vaccine (1 - Tdap) [address] Colonography 1998 Cologuard (FIT-DNA) 1998 Colonoscopy 1998 Colorectal Cancer Screening 1998 Fecal Occult Blood 1998 Sigmoidoscopy 1998 Shingrix Vaccine (1 of 2) 07/28/2003 Pneumococcal Vaccine: 50+ (2 of 2 - PCV) 02/04/2013 02/05/2012 Lipid Screening 02/07/2017 02/08/2012 Bone Density Screening 2018 Diabetes Screening 08/12/2022 08/13/2019, 0 09/06/2016, 09/06/2016, Additional history exists Advance Directive Discussion 03/05/2024 Influenza Vaccine (#1) 2024 7, 12/06/2016, 02/03/2012, Additional history exists RSV Vaccine (1 - 1-dose 75+ series) 2028 Procedures Procedure Name Priority Date/Time Associated Diagnosis Comments COMPREHENSIVE METABOLIC PANEL Routine 08/13/2019 10:20 AM EDT Microadenoma Isaac disease (HCC) Morbid obesity (HCC) Other specified disorders of thyroid LIPID PANEL, FASTING Routine 02/08/2012 10:01 AM EST HYPERTENSION NOS Morbid obesity HYPERLIPIDEMIA NEC/NOS Isaac disease Other abnormal blood chemistry from Last 3 Months or Most Recently Relevant to Health Maintenance Results * (ABNORMAL) COMP METABOLIC PANEL (08/13/2019 10:20 AM EDT) Pathologist [facility] Protein, Total 6.5 6.3 - 8.0 g/dL 08/13/2019 11:49 AM EDT [facility] Albumin 4.2 3.9 - 4.9 g/dL 08/13/2019 11:49 AM EDT [facility] Calcium 9.4 8.5 - 10.2 mg/dL 08/13/2019 11:49 AM EDT [facility] Bilirubin, Total 0.6 0.2 - 1.3 mg/dL 08/13/2019 11:49 AM EDT [facility] Alkaline Phosphatase 67 34 - 123 U/L 08/13/2019 11:49 AM [facility] AST 29 13 - 35 U/L 08/13/2019 11:49 AM [facility] Glucose 111(H) 74 - 99 mg/dL 08/13/2019 11:49 AM [facility] Comment: The [place] Diabetes Association (ADA) provides guidance for cutoff values for fasting glucose and random glucose. The ADA defines fasting as no caloric intake for at least 8 hours. Fasting plasma glucose results between 100 to 125 mg/dL indicate increased risk for diabetes (prediabetes). Fasting plasma glucose results greater than or equal to 126 mg/dL meet the criteria for diagnosis of diabetes. In the absence of unequivocal hyperglycemia, results should be confirmed by repeat testing. In a patient with classic symptoms of hyperglycemia or hyperglycemic crisis, random plasma glucose results greater than or equal to 200 mg/dL meet the criteria for diagnosis of diabetes. Reference: Standards of Medical Care in Diabetes 2016, [place] Diabetes Association. Diabetes Care. 2016.39(Suppl 1). BUN 18 7 - 21 mg/dL 08/13/2019 11:49 AM [facility] Creatinine 0.88 0.58 - 0.96 mg/dL 08/13/2019 11:49 AM [facility] Sodium 142 136 - 144 mmol/L 08/13/2019 11:49 AM [facility] Potassium 4.2 3.7 - 5.1 mmol/L 08/13/2019 11:49 AM [facility] Chloride 103 97 - 105 mmol/L 08/13/2019 11:49 AM [facility] CO2 27 22 - 30 mmol/L 08/13/2019 11:49 AM [facility] Anion Gap 12 9 - 18 mmol/L 08/13/2019 11:49 AM [facility] ALT 21 7 - 38 U/L 08/13/2019 11:49 AM [facility] eGFR- >60 08/13/2019 11:49 AM [facility] eGFR-All Other Races >60 . 08/13/2019 11:49 AM [facility] Comment: eGFR (Estimated GFR) Units of measure: mL/min/1.73 meters squared eGFR is derived from the reexpressed MDRD Study equation using the following parameters: serum creatinine, age, gender and race. The creatinine assay has been calibrated to be traceable to IDMS. An eGFR <60 mL/min/1.73m2 for >3 months is consistent with chronic kidney disease. Refer to KDOQI guidelines for clinical interpretation. In patients with unstable renal function, e.g. those with acute kidney injury, the eGFR may not accurately reflect actual GFR. Blood specimen (specimen) BLOOD SPECIMEN / Unknown 08/13/2019 10:20 AM EDT 08/13/2019 10:22 AM EDT us Burt Ardon MD LABORATORY Final Resul t Performing Organization Address [facility]/ZIP Co de Phone Number [facility] [address] [place] [address] [facility] [address] [place] [address] * (ABNORMAL) LIPID PANEL BASIC (02/08/2012 10:01 AM EST) Cholesterol, Total 120 0 - 200 mg/dL [facility] HDL Cholesterol 34 >50 mg/dL [facility] LDL Cholesterol, Calculated 53 0 - 100 mg/dL [facility] Cholesterol/HDL Ratio 3.0 1.0 - 5.0 [facility] Triglyceride 164(A) 0 - 150 mg/dL [facility] VLDL Cholesterol 33(A) 6 - 30 mg/dL [facility] Blood specimen (specimen) BLOOD SPECIMEN / Unknown 02/08/2012 10:01 AM EST us Desirae Zapien CNP LABORATORY Final Result Performing Organization Address City/[facility]/ZIP Co de Phone Number [facility] [address] [place] [address] from Last 3 Months or Most Recently Relevant to Health Maintenance Insurance [id number] [address] [address] MEDICARE [employer] [facility] [place] [id number] Care Teams Vice President Talent Management Relationship Specialty Start Date End Date Jori Connelly MD [address] [place] [phone] PCP - General Family Medicine 04/08/13
--- OUTSIDE RECORDS SUMMARY | 2024-12-04 13:55 | XMS_ITS | Encounter Summary ---
Author Organization [facility] Address [address] [place] [address] Care Team Providers Care Track Maintainer Name Role Phone Jori Connelly MD Unavailable [phone] Jori Connelly MD Primary Care Provider + Katey Kim RN Unavailable [phone] Katey Kim RN Unavailable [phone] Jori Connelly MD Unavailable + [phone] Jori Connelly MD Unavailable + [phone] Jori Connelly MD Primary Care Provider + Jori Connelly MD Unavailable [phone] Encounter Details Date Type Department Care Team (Late st Contact Info) Description 08/24/2022 Abstract [facility] [address] [place] [address] George Sanchez, PT [address] [facility] [place] [address] Social History Tobacco Use Types Packs/Day Years [...] 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 Not on file Not on file documented as of this encounter Plan of Treatment Upcoming Encounters Date Type Department Care Team (Late st Contact Info) Description 01/07/2025 11:00 AM EST Office Visit [facility] [address] [place] [address] Jori Connelly MD [address] [place] [address] (Fax) documented as of this encounter Visit Diagnoses Not on filedocumented in this encounter Care Teams Track Maintainer Relationship Specialty Start Date End Date Jori Connelly MD [address] [place] [address] (Fax) PCP - ACO Reach 07/27/22 04/10/24 Jori Connelly MD [address] [place] [address] (Fax) PCP - General Family Medicine 08/03/22 09/24/24 Jori Connelly MD [address] [place] [address] (Fax) PCP - Devoted 08/04/23 03/04/24 Jori Connelly MD [address] [place] [address] (Fax) PCP - ACO Reach 04/18/24 06/05/24 Jori Connelly MD [address] [place] [address] (Fax) PCP - General Family Medicine 09/25/24 Jori Connelly MD [address] [facility] [address] [place] [address] PCP - Medical [place] 03/05/2403/04 Katey Kim RN [address] [place] [address] Registered Nurse Family Medicine 01/04/23 01/09/23 Katey Kim RN [address] [facility] [address] [place] [address] Registered Nurse Family Medicine 07/12/23 documented as of this encounter
--- OUTSIDE RECORDS SUMMARY | 2024-12-04 13:55 | XMS_ITS | Clinical Summary ---
Author Organization [facility] Address [id number] [address] [place] [address] Care Team Providers Care Commercial Designer Name Role Phone Unavailable Primary Care Provider Unavailabl e Social History Tobacco Use Types Packs/Day Years Used Date Smoking Tobacco: Never Assessed Childcare Answer Date Recorded Childcare Unknown 08/14/2018 Employment Answer Date Recorded Employment Unknown 08/14/2018 Purpose - Life Answer Date Recorded Purpose and direction in life Unknown Comments Unknown Sex and Gender Information Value Date Recorded Sex Assigned at Not on file Legal Sex Female 11:30 AM EDT Gender Identity Not on file Sexual Orientation Not on file Plan of Treatment Health Maintenance Due Date Last Done Comments Depression Screening 1965 Tobacco Screening 1965 Adult BMI Screening 07/28/1971 DTaP,Tdap and Td Vaccines (1 - Tdap) 1972 Zoster (Shingles) Vaccine (1 of 2) 07/28/2003 Fall Risk Screening 2018 Influenza Vaccine 11/03/2024 02/03/2012 Medical Devices Not on file
--- OUTSIDE RECORDS SUMMARY | 2024-12-04 13:55 | XMS_ITS | Encounter Summary ---
Author Organization [facility] Address [address] [place] [address] Care Team Providers Care Associate Media Director Name Role Phone Jori Connelly MD Unavailable Jori Connelly MD Primary Care Provider [phone] Katey Kim RN Unavailable [phone] Jori Connelly MD Unavailable Jori Connelly MD Unavailable [phone] Jori Connelly MD Primary Care Provider [phone] Jori Connelly MD Unavailable [phone] Encounter Details Date Type Department Care Team (Late st Contact Info) Description 02/15/2023 Orders Only [facility] [place] [facility] Family Medicine [address] [place] [address] Jori Connelly MD 112 [facility] [address] [place], [place] [address] (Fax) Cervical radiculopathy at C7 (Primary Dx); Anxiety with depression; Mixed hyperlipidemia Social History Tobacco Use Types [...] week 11/07/2022 How often do you attend [facility] or taoist services? More than 4 times per year 11/07/2022 Do you belong to any clubs o r organizations such as restoration groups, unions, fraternal or athletic groups, or [...] Recorded Patient Health Questionnaire-2 Score 0 09/21/2022 [facility] - Occupational Stress Questionnaire Answer Date [...] slept in a long-term (including now)? 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 Not on file Not on file documented as of this encounter Plan of Treatment Upcoming Encounters Date Type Department Care Team (Late st Contact Info) Description 01/07/2025 11:00 AM EST Office Visit [facility] [address] [place] [address] [place] [address] Jori Connelly MD [address] [place] [address] documented as of this encounter Visit Diagnoses Diagnosis Cervical radiculopathy at C7- Primary Brachial neuritis or radiculitis nos Anxiety with depression Mixed hyperlipidemia documented in this encounter Additional Health Concerns Assessment Noted Time A fall risk assessment has been complete d for the patient 09/21/2022 9:46 AM EDT documented as of this encounter Care Teams Associate Media Director Relationship Specialty Start Date End Date Jori Connelly MD [address] [place] [address] PCP - ACO Reach 07/27/22 04/10/24 Jori Connelly MD [address] [place] [address] (Fax) PCP - General Family Medicine 08/03/22 09/24/24 Jori Connelly MD [address] [address] (Fax) PCP - Devoted 08/04/23 03/04/24 Jori Connelly MD [address] [place] [address] (Fax) PCP - ACO Reach 04/18/24 06/05/24 Jori Connelly MD [address] [address] (Fax) PCP - General Family Medicine 09/25/24 Jori Connelly MD [address] [place] [address] (Fax) PCP - Medical [place] 03/05/2403/04 Katey Kim, PAULA [address] [place] [address] Registered Nurse Family Medicine 07/12/23 documented as of this encounter
--- OUTSIDE RECORDS SUMMARY | 2024-12-04 13:55 | XMS_ITS | Clinical Summary ---
Author Organization [facility] Address [address] [place] [address] Phone Care Team Providers Care Grey Washer Name Role Phone Unavailable Primary Care Provider [...] Date Last Done Comments CT Colonography 1953 Colonoscopy 1953 Colorectal Cancer Screening 1953 FIT-DNA (Cologuard) 1953 FIT 1953 Lipid Panel 1953 Sigmoidoscopy 1953 Yearly Adult Physical 1953 MMR Vaccines (1 of 1 - Stand aftab series) 1954 Hepatitis C Screening 07/28/1971 DTaP/Tdap/Td Vaccines (1 - Tdap) 07/28/1975 Mammogram 1993 Pneumococcal Vaccine (1 of 1 - PCV) 07/28/2003 Zoster Vaccines (1 of 2) 07/28/2003 Bone Density Scan 2018 COVID-19 Vaccine (1 - 2023-2 5 season) 2024 Influenza Vaccine (#1) 2024 RSV High Risk: (Elderly (60+ ) or Population) (1 - 1-dose 75+ series) 2028 HIB Vaccines Aged Out No longer eligi ble based on patient's age to complete this topic HPV Vaccines Aged Out No longer eligi ble based on patient's age to complete this topic Hepatitis A Vaccines Aged Out No long er eligible based on patient's age to complete this topic Hepatitis B Vaccines Aged Out No long er eligible based on patient's age to complete this topic IPV Vaccines Aged Out No longer eligi ble based on patient's age to complete this topic Meningococcal Vaccine Aged Out No lionel drea eligible based on patient's age to complete this topic Rotavirus Vaccines Aged Out No longer eligible based on patient's age to complete this topic
--- OUTSIDE RECORDS SUMMARY | 2024-12-04 13:55 | XMS_ITS | Encounter Summary ---
Author Organization [facility] Address [address] [place] [address] Care Team Providers Care Supply Cataloguer Name Role Phone Jori Connelly MD Unavailable + [phone] Jori Connelly MD Primary Care Provider + Katey Kim RN Unavailable [phone] Katey Kim RN Unavailable [phone] Jori Connelly MD Unavailable + [phone] Jori Connelly MD Unavailable + [phone] Jori Connelly MD Primary Care Provider + Jori Connelly MD Unavailable + [phone] Encounter Details Date Type Department Care Team (Late st Contact Info) Description 10/23/2022 Abstract [facility] [address] [place] [id number] Clarissa Hamilton, OT [address] [place] [address] Social History Tobacco Use Types Packs/Day Years [...] 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 Not on file Not on file documented as of this encounter Plan of Treatment Upcoming Encounters Date Type Department Care Team (Late st Contact Info) Description 01/07/2025 11:00 AM EST Office Visit [facility] [address] [place] [address] Jori Connelly MD [address] [place] [address] (Fax) documented as of this encounter Visit Diagnoses Not on filedocumented in this encounter Additional Health Concerns Assessment Noted Time A fall risk assessment has been complete d for the patient 09/21/2022 9:46 AM EDT documented as of this encounter Care Teams Supply Cataloguer Relationship Specialty Start Date End Date Jori Connelly MD [address] [place] [address] (Fax) PCP - [facility] 07/27/22 04/10/24 Jori Connelly MD [address] [place] [address] (Fax) PCP - General Family Medicine 08/03/22 09/24/24 Jori Connelly MD [address] [place] [address] (Fax) PCP - Devoted 08/04/23 03/04/24 Jori Connelly MD [address] [place] [address] (Fax) PCP - ACO Reach 04/18/24 06/05/24 Jori Connelly MD [address] [place] [address] PCP - General Family Medicine 09/25/24 Jori Connelly MD [address] [place] [address] PCP - [facility] 03/05/2403/04 Katey Kim RN [address] [place] [address] Registered Nurse Family Medicine 01/04/23 01/09/23 Katey Kim RN [address] [place] [address] Registered Nurse Family Medicine 07/12/23 documented as of this encounter
== END 2024-12-04 13:51 | disposition home or self-care (01) ==
LOC: LAB 13:52
PROVIDERS: Family Provider Family Medicine; PCP Family Medicine; Visit Provider Family Medicine
DX: E11.21 Type 2 diabetes mellitus with diabetic nephropathy (principal)
CPT/HCPCS: 36415; 83036

== ENCOUNTER 2024-12-04 14:08 | Outpatient (RCR) | payer MEDICARE, SELFPAY ==
[2024-12-04 15:03] LABS: Glucose Urine UA NEGATIVE (NEGATIVE)
== END 2025-01-02 23:59 | disposition home or self-care (01) ==
LOC: INF 14:08
PROVIDERS: Family Provider Family Medicine; PCP Family Medicine; Visit Provider Family Medicine
DX: N30.01 Acute cystitis with hematuria (principal); R35.0 Frequency of micturition; R82.90 Unspecified abnormal findings in urine; I69.354 Hemiplegia and hemiparesis following cerebral infarction affecting left non-dominant side; E11.21 Type 2 diabetes mellitus with diabetic nephropathy
CPT/HCPCS: 36415; 51701; 81003; 83036